=== PATIENT | male | born 1940 | race Two or more races ===

== ENCOUNTER 2024-08-02 09:44 | Outpatient (RCR) | payer OTHER, SELFPAY ==
--- NOTE | 2024-08-02 11:47 | CTCCONSULT_ITS ---
[facility] [address], [place] [address] Consultation Note Date: 08/02/2024 MR#: [id number] Name: DANIEL GARCIA : 1940 Dx: C61 Malignant neoplasm of prostate Attending physician. Laquita Curiel MD Referring physician. Bobby Dumont MD Reason for consultation. Recurrent prostate CA History of Present Illness: Patient is a 84-year-old gentleman who underwent prostatectomy for locali zed prostate CA 2003. Recently noted to have PSA had risen to 22 04/25/[address] showing 4 mm left external iliac lymph node mass and bone scan positive for possible thoracic left mandible rig ht maxilla and right hip involvement. Patient is having minimal discomfort but because of evidence o f recurrence patient is started Lupron injections thus far gone to monthly shots according to family. Patient now referred for radiation oncology consultation. Past Medical History: High blood pressure, prostatism. Meds. Gabapentin lisinopril oxybutynin atorvastatin doxazosin Allergies none to meds Family history. Denies history of prostate cancer Social History: [place]-speaking retired from [employer] Review of Systems: Has had difficulty hearing to years muscle pain nocturia recent back pain Physical Exam: General: Well-appearing gentleman in no acute distress HEENT: Atraumatic normocephalic extraocular is intact no oral lesion no cervical or supraclavicular a denopathy CV: Chest clear to all station heart regular rate and rhythm ABD: Soft no organomegaly or tenderness EXT: no cyanosis clubbing or edema Assessment:1. History of localized prostate CA radical prostatectomy 2003. 2. Suspected recurrence based on elevated PSA of [address] and bone scan. 3. Currently receiving monthly Lupron injections . 4. Shall get PET scan to better stage patient. Possible treatment of bony site and if no obvious e vidence of distant mets, treatment of pelvis area will be discussed with patient. 5. Thank you much for allowing me to evaluate this patient. Cc: . Bobby Curiel MD Electronically signed by: Isaias Yeung MD, DABR 08/02/2024 11:45 AM
== END 2024-08-19 23:59 | disposition home or self-care (01) ==
LOC: SCTC 09:44
PROVIDERS: PCP Internal Medicine; Referring Provider Surgery; Visit Provider Radiology Therapeutic Radiology
DX: C61 Malignant neoplasm of prostate (principal); Z79.818 Long term (current) use of other agents affecting estrogen receptors and estrogen levels; Z90.79 Acquired absence of other genital organ(s)
CPT/HCPCS: 99213; G0463

== ENCOUNTER → 2024-08-18 | Outpatient (CLI) | payer OTHER, SELFPAY ==
--- NOTE | 2024-08-18 14:00 | XR_ITS ---
EXAMINATION: PET/CT FUSION SKULL TO THIGH EXAM DATE AND TIME: August 18, 2024 1442 hours INDICATIONS: Diagnosis prostate cancer prior to treatment staging CTDI:vol (mGy) 8.72 DLP: (mGycm) 796 PROCEDURE: 15.86 mCi FDG was administered intravenously To allow for distribution and uptake of radiotracer, the patient was allowed to rest quietly in a shielded room. Imaging was performed on an integrated 16-slice PET/CT scanner, with scanning from the skull base to the mid thigh. Serum blood glucose at the time of the injection was measured 108 mg/dL. CT scanning was performed without oral or intravenous contrast material. FINDINGS: Head and Neck: There is no jadon hypermetabolism in the neck. The visualized portions of the brain are normal in appearance on CT. Chest: There is no jadon hypermetabolism in the chest. There are no pulmonary nodules. Abdomen and Pelvis: There is no jadon hypermetabolism in retroperitoneal or pelvic chains. The spleen is normal in size and FDG avidity. The 4 cm left external iliac lymph node mass on the CT pelvis June 03 2024 currently measures 27 mm is not hypermetabolic Musculoskeletal: Marrow uptake is within normal range. However, please see the nuclear medicine bone scan June 10, 2024 IMPRESSION: The 4 cm left external iliac lymph node mass on the CT pelvis June 03, 2024 currently measures 27 mm and is not hypermetabolic
== END | disposition home or self-care (01) ==
PROVIDERS: PCP Internal Medicine; Referring Provider Radiology Therapeutic Radiology; Visit Provider Radiology Therapeutic Radiology
DX: R19.09 Other intra-abdominal and pelvic swelling, mass and lump (principal); C61 Malignant neoplasm of prostate
CPT/HCPCS: 78815; A9552

== ENCOUNTER 2024-09-15 09:51 | Outpatient (RCR) | payer OTHER, SELFPAY ==
--- NOTE | 2024-08-31 15:21 | CTCFLWUP_ITS ---
[facility] [address] [place], [place] [address] FOLLOW-UP NOTE Date: 08/31/2024 MR#: [id number] Name: DANIEL GARCIA : 1940 Dx: C61 Malignant neoplasm of prostate Patient is here for follow-up to check on the PET scan results. There is no clear evidence of mets with the left external iliac node not being hypermetabolic. Bony lesion appear more subtle and less significant than bone scan. Will move forward with treating the prostate region only considering he is getting Lupron shots and his age as well. Side effects discussed. Electronically signed by: Isaias Yeung M.D. 08/31/2024 3:19 PM
--- NOTE | 2024-08-31 15:22 | CTCTXPLN_ITS ---
[facility] [address] [place], [place] [address] Physician Clinical Treatment Planning Note Date of Service: 08/31/2024 Name: DANIEL GARCIA D.O.B.: 1940 The patient has agreed to proceed with Radiation therapy. Tests and supporting medical records were interpreted to assist in defining the tumor location and extent of disease. Further imaging will be necessary to contour and delineate the volume to which the XRT will be provided. A. Treatment Intent: Curative B. Modality: 10 MV C. Requested Technique: VMAT D. Treatment Site: Pelvis E. Critical structures to be contoured on plan: F. In order to accomplish this plan, I am ordering/Prescribing the followin. Simulations (s) will be performed to accomplish a reproducible treatment position, to determine optimal treatment portals/beam arrangements, to design beam modifying devices and verify treatment portals on patient prior to the commencement of Radiation Therapy. Pelvis 2. Devices; for immobilization and beam shaping: Vac-Todd 3. CT Guidance for placement of XRT torres Scan area: 4. Portal images Frequency: 5. Invivo transit dose measurement once per week on all VMAT patients. 6. Special Physics Consult Requested for: 7. Other requests: G. Dose Objectives: Curative Electronically signed by: Isaias Yeung M.D. 08/31/2024 3:19 PM
--- NOTE | 2024-08-31 15:23 | CTCTXPLNST_ITS ---
Radiation Oncology Treatment Planning Sheet Name: DANIEL GARCIA MR#: [id number] : 1940 Dx: C61 Malignant neoplasm of prostate Date of Service: 08/31/2024 Account #: ?? Pt Treatment Intent: curative palliative other: Stage: Procedure CPT # Ordered Spec. Procedure 87601 Yuan Complex (set-up) 64569 pelvis 1 Yuan Simple 56636 IMRT Plan 35891 1 MLC Devices VMAT 91574 3 Yuan 3 D 56486 TRTMT dev Complex 30409 Vac-Todd 1 TRTMT dev simple 28771 Basic [place] 43097 6 Special Dosimetry 42679 Spec Physics 34956 Port Films 12995 SRS Cranial/1FX 11308 SBR 5 FX or Less /ex: 5 = 5 fx 55253 IMRT Simple 49856 6840 38 IMRT Complex 70353 IGRT 27272 33 Rad del com 6-10 17935 Rad del com 11- 30885 Cont Med Physics 62460 7 Treatment Planning 14845 1 Rad del com 20 mev 70861 Rad del inter 6-10 83972 Rad del inter 11 67899 Rad del simple 6-10 64286 Rad del simple 11-19 88485 Special Port Plan 21265 TRTMT dev inter 71190 Isodose Complex 90566 Isodose simple 92796 Resp Motion Mgmt Simulation 70605 Placement of Fiducial Markers 31512 Electronically Signed By: Isaias Yeung MD, DABR 08/31/2024 3:21 PM
== END 2024-09-16 23:59 | disposition home or self-care (01) ==
LOC: SCTC 09:51
PROVIDERS: PCP Internal Medicine; Referring Provider Internal Medicine; Visit Provider Radiology Therapeutic Radiology
DX: C61 Malignant neoplasm of prostate (principal)
CPT/HCPCS: 77014; 77290; 77334

== ENCOUNTER 2024-10-17 09:25 | Outpatient (RCR) | payer OTHER, SELFPAY | END 2024-10-17 23:59 | disposition home or self-care (01) | LOC: SCTC 09:25 | PROVIDERS: PCP Internal Medicine; Referring Provider Internal Medicine; Visit Provider Radiology Therapeutic Radiology | DX: Z51.0 Encounter for antineoplastic radiation therapy (principal); C61 Malignant neoplasm of prostate | CPT/HCPCS: 77300; 77301; 77336; 77338; 77385 ==

== ENCOUNTER → 2024-10-24 | Outpatient (CLI) | payer OTHER, SELFPAY ==
[2024-10-24 08:05] LABS: Collection Type, Urine Clean Catch
[2024-10-24 08:37] LABS: Basophils % (Auto) 0 % (0-2.5); Eosinophils # (Auto) 0.1 Thou/mm3 (0.0-0.5); Eosinophils % (Auto) 2 % (0-10); Hematocrit 37.2 % (41.0-53.0); Hemoglobin 12.8 g/dL (13.5-16.0); Immature Granulocytes % (Auto) 1 % (0-0); Immature Granulocytes Auto 0.03 Thou/mm3 (0.00-0.00); Lymphocytes # (Auto) 1.2 Thou/mm3 (1.0-4.8); Lymphocytes % (Auto) 19 % (10-50); Mean Corpuscular HGB Conc 34.4 g/dl (31.0-37.0); Mean Corpuscular Hemoglobin 29.7 pg (25.0-35.0); Mean Corpuscular Volume 86 fL (80-100); Monocytes # (Auto) 0.6 Thou/mm3 (0.0-0.8); Monocytes % (Auto) 9 % (0-12); Neutrophils # (Auto) 4.5 Thou/mm3 (1.8-7.7); Neutrophils % (Auto) 70 % (37-80); Nucleated Red Blood Cell % 0 /100 WBC (0); Platelet Count 180 Thou/mm3 (140-440); RDW Standard Deviation 40.8 fL (35.1-43.9); Red Blood Count 4.31 Miln/mm3 (4.50-5.90); White Blood Count 6.4 Thou/mm3 (3.8-10.6)
[2024-10-24 08:52] LABS: Bilirubin,Urine Negative (Negative); Blood,Urine Negative (Negative); Clarity,Urine Clear (Clear/Hazy); Color,Urine Lt-Yellow (Lt Yel-Yel); Glucose, Urine Negative (Negative); Ketones,Urine Negative (Negative); Leukocyte Esterase,Urine Negative (Negative); Nitrite,Urine Negative (Negative); PH,Urine 7.5 (5.0-7.0); Protein,Urine Trace (Neg - Trace); RBC,Urine 4 /hpf (0-3); Squamous Epithelial Cell,Urine < 1 /hpf (0-5); Urobilinogen,Urine Negative mg/dL (0.0-1.0); WBC,Urine 1 /hpf (0-5)
[2024-10-24 08:59] LABS: Alanine Aminotransferase 15 U/L (10-49); Albumin, Serum 3.7 gm/dL (3.4-4.8); Albumin/Globulin Ratio 1.4 (1.2-2.2); Alkaline Phosphatase 121 U/L (46-116); Anion Gap 8 (7-16); Aspartate Amino Transferase 24 U/L (0-34); BUN/Creatinine Ratio 20 Ratio (12-20); Blood Urea Nitrogen 16 mg/dL (9-23); Calcium (Corrected) 9.2 mg/dL (8.5-10.1); Carbon Dioxide 29.3 mMol/L (20.0-31.0); Cardiac Risk Estimate 3.7 RATIO (4.0-6.7); Chloride 102 mMol/L (98-107); Cholesterol 112 mg/dL (132-200); Creatinine (Component) 0.8 mg/dL (0.6-1.3); Globulin 2.7 gm/dL (2.3-3.5); Glucose 112 mg/dL (74-106); HDL Cholesterol 30 mg/dL (40-60); LDL Cholesterol,Calculated 64 mg/dL (0-130); Osmolality,Calculated 279 (275-295); Potassium 3.8 mMol/L (3.4-5.1); Sodium 139 mMol/L (136-145); Total Protein 6.4 gm/dL (5.7-8.2); Triglycerides 89 mg/dL (30-150); eGFR > 60 See Note
== END | disposition home or self-care (01) ==
LOC: COPL 07:13
PROVIDERS: PCP Internal Medicine; Referring Provider Internal Medicine; Visit Provider Internal Medicine
DX: I10 Essential (primary) hypertension (principal); E78.5 Hyperlipidemia, unspecified
CPT/HCPCS: 36415; 80053; 80061; 81001; 85025

== ENCOUNTER 2024-11-16 09:10 | Outpatient (RCR) | payer OTHER, SELFPAY | END 2024-11-16 23:59 | disposition home or self-care (01) | LOC: SCTC 09:10 | PROVIDERS: PCP Internal Medicine; Referring Provider Internal Medicine; Visit Provider Radiology Therapeutic Radiology | DX: Z51.0 Encounter for antineoplastic radiation therapy (principal); C61 Malignant neoplasm of prostate | CPT/HCPCS: 77336; 77385 ==

== ENCOUNTER 2024-11-30 10:36 | Outpatient (RCR) | payer OTHER, SELFPAY ==
--- NOTE | 2024-11-30 14:06 | CTCTSUMM_ITS ---
[facility] [address] [place], [place] [address] Treatment Summary Date: 11/30/2024 MR#: [id number] Name: DANIEL GARCIA : 1940 Dx: C61 Referring Physician: Bobby Dumont MD (A) Diagnosis: [ICD10] C61 Malignant neoplasm of prostate (B) Aim of Treatment: ?? (C) Concomitant Chemotherapy: No (D) Radiation Dates: 09/26/2024 through 11/16/2024 Treatment Prescription prostate VMAT 10MV 6,840 cGy 38 180 cGy Approved (E) All torres were treated using customized MLC Blocks (F) Finding at Discharge: Patient seen for first follow-up on 11/30/2024. Patient was doing well except for some fatigue. PSA today was less than 0.1 (G) Discharge Instructions and F/U Appt was given: The patient was also advised to continue follow-up with Dr. uDmont and primary care physician: cc: Bobby Dumont MD Electronically signed by: Isaias Yeung MD, DABR 11/30/2024 2:04 PM
== END 2024-12-17 23:59 | disposition home or self-care (01) ==
LOC: SCTC 10:36
PROVIDERS: PCP Internal Medicine; Referring Provider Internal Medicine; Visit Provider Radiology Therapeutic Radiology
DX: C61 Malignant neoplasm of prostate (principal); Z92.3 Personal history of irradiation; R53.83 Other fatigue
CPT/HCPCS: 99212; G0463

== ENCOUNTER → 2024-11-30 | Outpatient (CLI) | payer OTHER, SELFPAY ==
[2024-11-30 13:49] LABS: Prostate Specific Antigen < 0.10 ng/mL (0-4.00)
== END | disposition home or self-care (01) ==
PROVIDERS: PCP Internal Medicine; Referring Provider Surgery; Visit Provider Radiology Therapeutic Radiology
DX: C61 Malignant neoplasm of prostate (principal)
CPT/HCPCS: 36415; 84153

== ENCOUNTER 2025-01-24 09:12 | Inpatient (IN) | payer OTHER, MEDICARE, SELFPAY ==
[2025-01-24] VITALS (9 sets, daily range): BP systolic 61–107; BP diastolic 41–59; PULSE 57–82; RESP 12–92; TEMP 36–37.3; O2SAT 94–98; BMI 32.0
--- NOTE | 2025-01-24 09:28 | EKG_ITS ---
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
--- NOTE | 2025-01-24 09:28 | PD.EDWEAK ---
ED Weakness RME/HPI General Chief complaint: Skin/Abscess/Foreign Body Stated complaint: WEAKNESS WITH RASH YESTERDAY Time Seen by Provider: 01/24/25 09:28 Arrival date/time: 01/24/25 09:12 Limitations: no limitations RME / HPI RME / HPI Narrative: 84 year old male with history of prostate cancer, s/p prostatectomy, undergoing radiation therapy, hypertension presents to the ED BIBA from home for evaluation of global weakness and rash today. Per medics, family on scene reported symptoms began yesterday and was given Benadryl without improvement. Per medics, patient also noted to be hypotensive SBP in the 60's. Related Data Home Medications ?Medication ?Instructions ?Recorded ?Confirmed doxazosin 2 mg tablet 2 mg PO QDAY 04/14/18 02/21/22 gabapentin 300 mg capsule 300 mg PO BID 04/14/18 02/21/22 atorvastatin 10 mg tablet 10 mg PO QDAY 02/21/22 02/21/22 lisinopril 20 1 tab PO DAILY 02/21/22 02/21/22 mg-hydrochlorothiazide 12.5 mg tablet ofloxacin 0.3 % ear drops 10 drp otic (ear) BID 02/21/22 02/21/22 Allergies Allergy/AdvReac Type Severity Reaction Status Date / Time No Known Allergies Allergy Verified 01/24/25 09:39 Review of Systems Review of Systems Systems Reviewed: All systems reviewed, normal except as documented Past Medical History Past Medical History CARDIAC: Positive Cardiac Disorders, Hypercholesterolemia (TAKES MED) and Hypertension (TAKES MED) GASTROINTESTINAL: Positive Gastrointestinal Disorders, Gastrointestinal Bleed (PAST) and Gastroesophageal Reflux Disease (PAST) GENITOURINARY: Positive Genitourinary Disorders, Prostate Cancer (HAD SURG) and Benign Prostatic Hyperplasia MUSCULOSKELETAL: Positive Musculoskeletal Disorders and Arthritis ENT: Positive Cataracts (RIGHT) HEMATOLOGIC: Positive Anemia OTHER HISTORY: Positive Cancer and Prostate Cancer (HAD SURG) Family History FAMILY HISTORY: Positive Family Cardiac Disorders (FATHER (ND)), Family Cancer (SISTER (PANCREAS)) and Family Surgery (SISTER) Surgical History SURGICAL: Positive Abdominal Surgery, Transurethral Resection and Joint Replacement (CARLEY KNEE) Social History SMOKING STATUS: Never smoker ED Exam General Limitations: Present no limitations General appearance: Present alert, in no apparent distress and obese Head Head exam: Present atraumatic Eye Eye exam: Present normal appearance, PERRL and EOMI ENT ENT exam: Present normal exam, normal oropharynx and mucous membranes moist Neck Neck exam: Present normal inspection, full ROM, trachea midline and other (no JVD ) Chest Chest inspection: Present normal inspection and symmetric chest wall rise Respiratory Respiratory exam: Present normal lung sounds bilaterally Cardiovascular Cardiovascular exam: Present regular rate, normal rhythm and normal heart sounds Abdominal Exam Abdominal exam: Present soft and normal bowel sounds; Absent tenderness, guarding, rebound or mass Extremities Exam Extremities exam: Present normal inspection and full ROM Back Exam Back exam: Present normal inspection and full ROM Neurological Exam Neurological exam: Present alert, oriented X3 and CN II-XII intact Psychiatric Psychiatric exam: Present normal affect and normal mood Skin Skin exam: Present warm, dry, intact, normal color and other (generalized maculopapular rash to the trunk and extremities ) Course Quality Measures none Orders Category Date Time Status Admit to Inpatient Status Routine Admission 01/24/25 14:41 Active Patient Condition Routine Admission 01/24/25 14:41 Ordered COVID-19 Screening Questionnaire NOW Care 01/24/25 14:12 Active Tree Planter STAT Care 01/24/25 09:28 Active Continuous Pulse Oximetry STAT Care 01/24/25 09:28 Completed Decision to Admit X1 Care 01/24/25 14:12 Active EKG (ED ONLY) *Do not use* NOW Care 01/24/25 09:28 Completed Insert IV NOW Care 01/24/25 09:28 Active Miscellaneous Nursing Order NOW Care 01/24/25 14:46 Active NPO STAT Care 01/24/25 09:28 Active Notify provider NEEDED Care 01/24/25 14:41 Active Sequential Compression Device QSHIFT Care 01/24/25 14:46 Active Strict Intake and Output Routine Care 01/24/25 09:28 Ordered Urinary Catheter QS Care 01/24/25 09:28 Completed Diet Renal Diet 01/24/25 Dinner Active EKG (ED Only) Stat Exams 01/24/25 09:28 Draft XR chest 1V SEPSIS PROTOCOL Stat Exams 01/24/25 09:34 Completed Arterial Blood Gas Stat Lab 01/24/25 10:12 Completed B-Type Natriuretic Peptide Stat Lab 01/24/25 09:40 Completed Blood Culture (Lab) Stat Lab 01/24/25 09:40 Received CBC AM DRAW Lab 01/25/25 05:00 Ordered CBC AM DRAW Lab 01/26/25 05:00 Ordered CBC AM DRAW Lab 01/27/25 05:00 Ordered CBC Stat Lab 01/24/25 09:40 Completed Comprehensive Metabolic Panel AM DRAW Lab 01/25/25 05:00 Ordered Comprehensive Metabolic Panel AM DRAW Lab 01/26/25 05:00 Ordered Comprehensive Metabolic Panel AM DRAW Lab 01/27/25 05:00 Ordered Comprehensive Metabolic Panel Stat Lab 01/24/25 09:40 Completed Lactate (Lactic Acid) Stat Lab 01/24/25 09:40 Completed Lactic Acid, 3 HR Stat Lab 01/24/25 13:19 Completed Lipase Stat Lab 01/24/25 09:40 Completed Magnesium AM DRAW Lab 01/25/25 05:00 Ordered Magnesium Stat Lab 01/24/25 09:40 Completed Partial Thromboplastin Time AM DRAW Lab 01/25/25 05:00 Ordered Partial Thromboplastin Time Stat Lab 01/24/25 09:40 Completed Phosphorous AM DRAW Lab 01/25/25 05:00 Ordered Phosphorous Stat Lab 01/24/25 09:40 Completed Procalcitonin Stat Lab 01/24/25 09:40 Completed Prothrombin Time with INR AM DRAW Lab 01/25/25 05:00 Ordered Prothrombin Time with INR Stat Lab 01/24/25 09:40 Completed Thyroid Stimulating Hormone AM DRAW Lab 01/25/25 05:00 Ordered Troponin I Stat Lab 01/24/25 09:40 Completed Urinalysis Stat Lab 01/24/25 09:50 Completed Urine Culture Stat Lab 01/24/25 09:50 Received Acetaminophen Tab [Tylenol Tab] Med 01/24/25 14:43 Active 650 mg PO Q6H PRN Azithromycin Inj [Zithromax Inj] 500 mg Med 01/24/25 14:48 Active Sodium Chloride 0.9% 250 ml [Ns] 250 ml IV QDAY MethylPREDNISolone.* [SoluMEDROL Inj] Med 01/24/25 09:40 Discontinued 125 mg IVP X1 ONE Ondansetron Inj [Zofran Inj] Med 01/24/25 14:43 Active 4 mg IVP Q6H PRN Piper/Tazo 3.375 gm Premix [Zosyn] Med 01/24/25 09:28 Discontinued 3.375 gm in 50 ml IV X1 Ringers Lactated 1000 ml [Lactated Ringers] 1,000 ml Med 01/24/25 14:45 Active IV 90 mls/hr Ringers Lactated 1000 ml [Lactated Ringers] 1,000 ml Med 01/24/25 09:39 Discontinued IV 999 mls/hr Ringers Lactated 1000 ml [Lactated Ringers] 1,000 ml Med 01/24/25 09:39 Discontinued IV 999 mls/hr Ringers Lactated 1000 ml [Lactated Ringers] 1,000 ml Med 01/24/25 09:40 Discontinued IV 999 mls/hr cefTRIAXone/D5w 1gm IV premix [Rocephin/D5w 1gm IV Med 01/24/25 14:48 Active premix] 1 gm in 50 ml IV QDAY Code Status Routine Oth 01/24/25 14:41 Ordered Oxygen Delivery NOW RT 01/24/25 09:28 Active Vital Signs Vital signs: Vital Signs Temperature 99.2 F 01/24/25 09:26 Pulse Rate 77 01/24/25 09:26 Respiratory Rate 20 01/24/25 09:26 Blood Pressure 61/41 L 01/24/25 09:26 Pulse Oximetry (%) 95 01/24/25 09:26 Weakness MDM Narrative MDM Narrative:: INyasia am scribing for and in the presence of Dr. Shultz. 1405: is at bedside and provides additional history. states they went to the [facility] on Thursday. States the patient only walked a few feet to his seat and was not exposed to plants. States the patient has felt fatigued since Thursday and noted the rash beginning yesterday. They consulted with PCP yesterday who prescribed Prednisone which has not provided any relief. Patient data External records reviewed:: [facility] previous records (I reviewed oncology follow up note on 08/31/2024 ) and EMS form Clinical information provided by:: EMS Social determinants that could affect healthcare access:: none Patient has the following chronic illnesses:: prostate cancer, s/p prostatectomy, undergoing radiation therapy, hypertension How is presenting disease/condition affected by chronic disease/condition?: exacerbated by Evaluation data The following diagnostics were reviewed and interpreted by me:: lab results, radiology exam(s) and EKG tracing(s) (01/24/2025 @ 9:51 AM. NSR with occasional PVC, no STEMI, rate 68. ) Lab and/or radiology exams considered but not ordered:: None Interpretation Summary: Ordering Physician: Sher Shultz MD Date of Service: 01/24/25 Procedure(s): XR chest 1V SEPSIS PROTOCOL Accession Number(s): [id number] cc: Sher Shultz MD; Nelson Dang MD; Laquita Curiel MD~ Examination: AP chest single view Technique one AP portable upright chest single view Date and time: January 24, 2025 1009 hours Comparison July 11, 2010 INDICATIONS: Sepsis alert today. FINDINGS: Significant pneumonia left base. Normal heart size. Right lung clear. IMPRESSION: Significant pneumonia left base Dictated By: Nelson Dang MD Signed By: <Electronically signed by Nelson Dang MD in OV>01/24/25 1103 Medications / Prescriptions Medications or Prescriptions considered but not ordered:: None Medication administrations:: Medication Administration History Acetaminophen (Acetaminophen 325 Mg Tablet) 650 mg PO Q6H PRN PRN Reason: pain 1-3 &/or temp>100.1 Stop: 02/23/25 14:42 Lactated Ringer's (Lactated Ringers) 1,000 mls @ 90 mls/hr IV .Q11H7M JOEL Stop: 02/23/25 14:44 Ceftriaxone Sodium/Dextrose (Rocephin/D5w 1gm Iv Premix) 1 gm in 50 mls @ 100 mls/hr IV QDAY JOEL Stop: 01/31/25 14:47 Azithromycin 500 mg/ Sodium (Chloride) 250 mls @ 250 mls/hr IV QDAY JOEL Stop: 01/31/25 14:47 Ondansetron HCl (Ondansetron Inj 2 Mg/Ml Inj 2 Ml) 4 mg IVP Q6H PRN; Protocol PRN Reason: NAUSEA OR VOMITING Stop: 02/23/25 14:42 Discontinued Medications Piperacillin/Tazobactam/Dextrose (Zosyn) 3.375 gm in 50 mls @ 100 mls/hr IV X1 ONE Stop: 01/24/25 09:57 Last Infusion: 01/24/25 11:30 Dose: Infused Documented By: Admin: 01/24/25 10:42 Dose: 100 mls/hr Documented By: TED Lactated Ringer's (Lactated Ringers) 1,000 mls @ 999 mls/hr IV .Q1H1M ONE Stop: 01/24/25 10:39 Last Infusion: 01/24/25 10:51 Dose: Infused Documented By: Admin: 01/24/25 09:50 Dose: 999 mls/hr Documented By: TED Lactated Ringer's (Lactated Ringers) 1,000 mls @ 999 mls/hr IV .Q1H1M ONE Stop: 01/24/25 10:39 Last Infusion: 01/24/25 11:05 Dose: Infused Documented By: Admin: 01/24/25 09:55 Dose: 999 mls/hr Documented By: TED Lactated Ringer's (Lactated Ringers) 1,000 mls @ 999 mls/hr IV .Q1H1M ONE Stop: 01/24/25 10:40 Last Infusion: 01/24/25 12:05 Dose: Infused Documented By: Admin: 01/24/25 10:50 Dose: 999 mls/hr Documented By: TED Methylprednisolone Sodium Succinate (Methylprednisolone Sod Succ 62.5 Mg/Ml 2ml Vial) 125 mg IVP X1 ONE Stop: 01/24/25 09:41 Last Admin: 01/24/25 10:42 Dose: 125 mg Documented By: TED See above Consultations Consultation(s) initiated? (list below): Yes Consultation #1 (Physician, Specialty, Details): I spoke with patients PCP Dr. Curiel, Discussed patients PMHx, HPI, ED course, exam findings, labs, and radiology results. She agrees to accept the patient for admission. Diagnosis Weakness Differential Diagnosis: acute myocardial infarction, hypoglycemia, rhabdomyolysis, sepsis and dehydration Most likely diagnosis given after review of the tests above:: Left pneumonia sepsis hypotension GABBY elevated troponin leukocytosis UTI Admission Indicated Admission indicated?: indicated Admission Request Was there a request for admission?: Yes Admission Attestation Admission request attestation: Discussed case with [] from Hospitalist service regarding admission. Discussed patients ED course, exam findings, labs, and radiology results. The Hospitalist [agrees,declines] to accept the patient for admission. Disposition Plan Disposition Plan: Admit Critical Care Time Critical Care Time Critical Care Time: Yes Total Critical Care Time (min.): 60 Attestation: The high probability of sudden, clinically significant deterioration in the patient's condition required the highest level of my preparedness to intervene urgently. The services I provided to this patient were to treat and/or prevent clinically significant deterioration. Services included the following: chart data review, reviewing nursing notes and/or old charts, documentation time, nursing education consultant collaboration regarding findings and treatment options, medication orders and management, direct patient care, vital sign assessments and ordering, interpreting and reviewing diagnostic studies and lab tests. Aggregate critical care time includes only time during which I was engaged in work directly related to the patient's care, as described above, whether at bedside or elsewhere in the Emergency Department. It did not include time spent performing other reported procedures or the services of residents, students, nurses or physician assistants. Discharge Plan Plan Patient Disposition: Admit Acute Care w/in Hospital Prescriptions/Referrals Prescriptions/Med Rec: No Action gabapentin 300 mg Capsule 300 mg PO BID doxazosin 2 mg Tablet 2 mg PO QDAY atorvastatin 10 mg Tablet 10 mg PO QDAY lisinopril-hydrochlorothiazide 20-12.5 mg tablet 1 tab PO DAILY Patient Comments: TAKE 1 TABLET BY MOUTH ONCE DAILY ofloxacin 0.3 % Drops 10 drp OTIC (EAR) BID Problem List Clinical Impression: Left lower lobe pneumonia, Sepsis, Hypotension, GABBY (acute kidney injury), Elevated troponin, Leukocytosis, UTI (urinary tract infection) Patient/Caregiver Discharge Instructions Print Language: Zambian Stand Alone Forms: Jennifer Award Info., Patient Portal Info Letter
--- NOTE | 2025-01-24 09:34 | XR_ITS ---
Examination: AP chest single view Technique one AP portable upright chest single view Date and time: January 24, 2025 1009 hours Comparison July 11, 2010 INDICATIONS: Sepsis alert today. FINDINGS: Significant pneumonia left base. Normal heart size. Right lung clear. IMPRESSION: Significant pneumonia left base
[2025-01-24] MEDS: RINGERS LACTATED 1000 ML 1,000 ML 999 ML IV ×3 (09:50→10:50)
[2025-01-24 10:04] LABS: Collection Type, Urine Clean Catch
[2025-01-24 10:07] LABS: Lactate (Lactic Acid) 3.7 mMol/L (0.4-2.0)
[2025-01-24 10:15] LABS: Base Excess 1 (-3-3); HCO3 24 mEq/L (20-26); Inspired O2, VO2 Liters 1 L/min; Inspired Oxygen, FIO2 21 %; O2 Saturation 100 % (91-98); PCO2 35 mmHg (32.0-48.0); PO2 193 mmHg (83-108); pH, Arterial 7.45 (7.35-7.45)
[2025-01-24 10:16] LABS: Basophils # (Auto) 0.1 Thou/mm3 (0.0-0.2); Basophils % (Auto) 0 % (0-2.5); Eosinophils # (Auto) 0.3 Thou/mm3 (0.0-0.5); Eosinophils % (Auto) 1 % (0-10); Hematocrit 38.0 % (41.0-53.0); Hemoglobin 13.4 g/dL (13.5-16.0); Immature Granulocytes Auto 1.06 Thou/mm3 (0.00-0.00); Lymphocytes # (Auto) 0.5 Thou/mm3 (1.0-4.8); Lymphocytes % (Auto) 2 % (10-50); Mean Corpuscular HGB Conc 35.3 g/dl (31.0-37.0); Mean Corpuscular Hemoglobin 30.0 pg (25.0-35.0); Mean Corpuscular Volume 85 fL (80-100); Monocytes # (Auto) 0.8 Thou/mm3 (0.0-0.8); Monocytes % (Auto) 3 % (0-12); Neutrophils # (Auto) 22.4 Thou/mm3 (1.8-7.7); Neutrophils % (Auto) 90 % (37-80); Nucleated Red Blood Cell # 0.00 Thou/mm3 (0.00-0.00); Nucleated Red Blood Cell % 0 /100 WBC (0); Platelet Count 159 Thou/mm3 (140-440); RDW Standard Deviation 42.3 fL (35.1-43.9); Red Blood Count 4.47 Miln/mm3 (4.50-5.90); White Blood Count 25.0 Thou/mm3 (3.8-10.6)
[2025-01-24 10:21] LABS: Allen Test Not Performed; Puncture Site Left Radial
--- NOTE | 2025-01-24 10:21 | PC.NURSE ---
BIBA FROM HOME FOR WEAKNESS AND BODY RASH X YESTERDAY. HYPOTENSIVE UPON ER ARRIVAL WITH SLIGHT FEVER AND GCS 15. HX HIGH CHOLESTEROL, HTN, BILAT KNEE SURGERY BACK SURGERY, RIGHT EAR SURGERY, AND AMBULATES WITH CANE / WALKER. ALSO STATES PATIENT HAS HX PROSTATE CANCER X 20YRS WITH CHEMOTHERAPY. MAY 2024 PROSTATE CNX NUMBERS INCREASED AND RECEIVED RADIATION THERAPY JUL-SEP. NO PREVIOUS HX OF SKIN RASH
[2025-01-24 10:29] LABS: B-Type Natriuretic Peptide 32 pg/mL (0-100); INR 1.3 (0.9-1.3); Partial Thromboplastin Time 37.3 Seconds (22.0-36.0); Prothrombin Time 13.5 Seconds (9.0-12.2)
[2025-01-24] MEDS: PIPER/TAZO 3.375 GM PREMIX 3.375 GM/50 ML BAG IV (10:42)
[2025-01-24] MEDS: MethylPREDNISolone SOD SUCC 62.5 MG/ML 2ML VIAL 125 MG IVP (10:42)
[2025-01-24 11:02] LABS: Alanine Aminotransferase 19 U/L (10-49); Albumin, Serum 3.6 gm/dL (3.4-4.8); Albumin/Globulin Ratio 1.4 (1.2-2.2); Alkaline Phosphatase 94 U/L (46-116); Anion Gap 11 (7-16); Aspartate Amino Transferase 43 U/L (0-34); BUN/Creatinine Ratio 10 Ratio (12-20); Bilirubin,Total 1.0 mg/dL (0.3-1.2); Blood Urea Nitrogen 37 mg/dL (9-23); Calcium 9.0 mg/dL (8.3-10.6); Calcium (Corrected) 9.3 mg/dL (8.5-10.1); Carbon Dioxide 24.6 mMol/L (20.0-31.0); Chloride 100 mMol/L (98-107); Creatinine (Component) 3.6 mg/dL (0.6-1.3); Estimated Creatinine Clearance 17.2 mL/min (>60); Globulin 2.6 gm/dL (2.3-3.5); Glucose 218 mg/dL (74-106); Lipase 23 U/L (12-53); Magnesium 1.9 mg/dL (1.6-2.6); Osmolality,Calculated 287 (275-295); Phosphorous 2.6 mg/dL (2.4-5.1); Potassium 4.3 mMol/L (3.4-5.1); Procalcitonin 4.21 ng/ml (0.0-0.49); Sodium 136 mMol/L (136-145); Total Protein 6.2 gm/dL (5.7-8.2); eGFR 16 See Note
[2025-01-24 11:27] LABS: Troponin I 0.119 ng/mL (0.0-0.045)
[2025-01-24 12:03] LABS: Bilirubin,Urine 1+ (Negative); Blood,Urine 2+ (Negative); Clarity,Urine Clear (Clear/Hazy); Color,Urine Drk Orange (Lt Yel-Yel); Glucose, Urine Trace (Negative); Ketones,Urine 1+ (Negative); Leukocyte Esterase,Urine Trace (Negative); Nitrite,Urine Positive (Negative); PH,Urine 5.0 (5.0-7.0); Protein,Urine 2+ (Neg - Trace); Specific Gravity,Urine >= 1.030 (1.001-1.035); Urobilinogen,Urine 1.0 mg/dL (0.0-1.0)
[2025-01-24 12:18] LABS: Bacteria,Urine 2+; RBC,Urine 44 /hpf (0-3); Squamous Epithelial Cell,Urine 28 /hpf (0-5); WBC,Urine 38 /hpf (0-5)
[2025-01-24 13:04] LABS: Reflex Lactate? Y
[2025-01-24 13:37] LABS: Lactic Acid, 3 HR 2.1 mMol/L (0.4-2.0)
--- NOTE | 2025-01-24 15:06 | PD.RESHP ---
Documentation for date of: 01/24/25 HPI History of Present Illness Chief complaint: septic shock, pneumonia History of present illness: Informant , granddaughter Iftikhar Haines is a 84M pmhx significant for prostate cancer status post prostatectomy years ago with recurrence in in May 2024 undergoing radiation therapy, on Lupron and Casodex , hypertension who presents with several days of weakness and rash all over the body for 1-2 days at bedside and majority of history collected from her. reports that patient began feeling weak and had difficulty walking short distances without feeling fatigued beginning Thursday with gradual worsening, as well as a spreading body rash that started yesterday. also reports that patient has had less urine output the past 2 days and has been slowly getting more confused, sometimes speaking nonsense . Patient has multiple falls yesterday and today. Denies any recent change in medication, travel or diet changes. Denies fever, chest pain, or shortness of breath. PMHx: Prostate cancer status post prostatectomy currently undergoing radiation therapy, hypertension, HLD, Surgical Hx: Bilateral total knee replacements, remote back surgery FHx: Mother diabetes. Father from [place]. No reportable hx of kidney disease Social Hx: Denies tobacco alcohol and illicit recreational drug use. Allergies: NKA Medications: Gabapentin 300 mg BID, lisinopril HCTZ 20/12 mg QD, Oxibutin 5 mg QD, atorvastatin 10 QD, doxazosin 2 mg QD, Casodex-bicalutamide In ED, BP 61/41 HR 77 RR 20 and temp 99.2, WBC 25, Hgb 13.4, PT 13.5 INR 1.3 APTT 37.3, BUN 37, Cr 3.6 eGFR 16, Lactic acid 3.7, AST 43, . In ED, given 3 L LR, Zosyn x1, and Methylprednisolone 125 mg. Once he is stabilized patient was transferred to telemetry. CXR shows significant pneumonia left base and UA shows evidence of UTI. Patient was admitted for further workup. Admitting diagnosis sepsis, pneumonia, UTI. Review of Systems Review of Systems ROS Unobtainable: unobtainable due to mental status Past Medical History Past Medical History NEUROLOGIC: Negative Neurological Disorders or Seizures CARDIAC: Positive Cardiac Disorders, Hypercholesterolemia and Hypertension; Negative Congestive Heart Failure, Edema, Cellulitis or Varicose Veins RESPIRATORY: Negative Chronic Obstructive Pulmonary Disease (COPD), Tuberculosis or Pulmonary Embolism GASTROINTESTINAL: Positive Gastrointestinal Disorders, Gastrointestinal Bleed and Gastroesophageal Reflux Disease; Negative Hepatitis GENITOURINARY: Positive Genitourinary Disorders, Prostate Cancer and Benign Prostatic Hyperplasia; Negative Renal Disease MUSCULOSKELETAL: Positive Musculoskeletal Disorders and Arthritis ENT: Positive Cataracts ENDOCRINE: Negative Endocrine Disorders, Diabetes Mellitus Type 1, Diabetes Mellitus Type 2 or Hypothyroidism HEMATOLOGIC: Positive Anemia; Negative Blood Disorders OTHER HISTORY: Positive Cancer and Prostate Cancer; Negative Hospitalization, Autoimmune Disease, Shingles, Falls, Blood Transfusions, Blood Transfusion Reaction, Anesthesia Reactions, Chemotherapy, Radiation Therapy, MRSA, Chicken Pox, Measles or Mumps Family History FAMILY HISTORY: Positive Family Cardiac Disorders, Family Cancer and Family Surgery; Negative Family Psychiatric Problems, Family Respiratory Disorders, Family Gastrointestinal Problems or Family Anesthesia Reaction Surgical History SURGICAL: Positive Abdominal Surgery, Transurethral Resection and Joint Replacement; Negative Cardiac Surgery or Pacemaker Social History SMOKING STATUS: Never smoker Exam Vital Signs Temp Pulse Resp BP Pulse Ox O2 Del Method O2 Flow Rate 97.8 F 69 20 107/53 L 95 Nasal Cannula 1 01/24/25 14:01/24/25 14:01/24/25 14:01/24/25 14:01/24/25 14:01/24/25 14:01/24/25 14:01 Narrative Exam General: AOx1, somnolent, cold to touch, mildly diaphoretic HEENT: bilateral pinpoint pupils, poor light reflex, dry membranes, bilateral sclera anicteric Cardiovascular: regular rate and rhythm, S1/S2 present, no murmurs appreciated Pulmonary: clear to auscultation bilaterally, no rales/rhonchi/wheezes Abdominal: soft, non-tender, non-distended, no rebound/guarding, bowel sounds present Extremities: no LE edema, mildly edematous arms from elbows to hands Skin: warm and dry, diffuse petechiae on the lower extremities. Extensive maculopapular rash all over the body, nonblanching Neuro patient lethargic and difficult to arouse. Results: Labs 01/24/25 09:40 01/24/25 18:16 Labs: Short CBC 01/24/25 Range/Units 09:40 WBC 25.0 H (3.8-10.6) Thou/mm3 Hgb 13.4 L (13.5-16.0) g/dL Hct 38.0 L (41.0-53.0) % Plt Count 159 (140-440) Thou/mm3 BMP 01/24/25 09:40 Sodium 136 Potassium 4.3 Chloride 100 Carbon Dioxide 24.6 BUN 37 H Creatinine 3.6 H Glucose 218 H Calcium 9.0 Cardiac Enzymes 01/24/25 Range/Units 09:40 Troponin I 0.119 H* (0.0-0.045) ng/mL Liver Function 01/24/25 Range/Units 09:40 Total Bilirubin 1.0 (0.3-1.2) mg/dL AST 43 H (0-34) U/L ALT 19 (10-49) U/L Alkaline Phosphatase 94 (46-116) U/L Albumin 3.6 (3.4-4.8) gm/dL Urine 01/24/25 Range/Units 09:50 Urine Color Drk [place] A (Lt Yel-Yel) Urine Clarity Clear (Clear/Hazy) Urine pH 5.0 (5.0-7.0) Ur Specific [place] >= 1.030 (1.001-1.035) Urine Protein 2+ A (Neg - Trace) Urine Glucose (UA) Trace (Negative) ABG Interpretation ABG results: 01/24/25 10:12 ABG pH 7.45 ABG pCO2 35 ABG pO2 193 H ABG HCO3 24 ABG O2 Saturation 100 H ABG Base Excess 1 Quality Measures Quality Measures VTE prophylaxis and none Advance care planning discussed with:: patient and spouse Medications Home Medications and Allergies Home Medications ?Medication ?Instructions ?Recorded ?Confirmed ?Type doxazosin 2 mg tablet 2 mg PO QDAY 04/14/18 01/24/25 History gabapentin 300 mg capsule 300 mg PO BID 04/14/18 01/24/25 History atorvastatin 10 mg tablet 10 mg PO QDAY 02/21/22 01/24/25 History lisinopril 20 1 tab PO DAILY 02/21/22 01/24/25 History mg-hydrochlorothiazide 12.5 mg tablet ofloxacin 0.3 % ear drops 10 drp otic (ear) BID 02/21/22 01/24/25 History bicalutamide 50 mg tablet 50 mg PO QDAY 01/24/25 01/24/25 History oxybutynin chloride 5 mg tablet 5 mg PO QDAY 01/24/25 01/24/25 History Allergies Allergy/AdvReac Type Severity Reaction Status Date / Time No Known Allergies Allergy Verified 01/24/25 09:39 Visit Medications Acetaminophen (Acetaminophen 325 Mg Tablet) 650 mg PO Q6H PRN PRN Reason: pain 1-3 &/or temp>100.1 Stop: 02/23/25 14:42 Ceftriaxone Sodium/Dextrose (Rocephin/D5w 1gm Iv Premix) 1 gm in 50 mls @ 100 mls/hr IV QDAY JOEL Stop: 01/31/25 14:47 Azithromycin 500 mg/ Sodium (Chloride) 250 mls @ 250 mls/hr IV QDAY JOEL Stop: 01/31/25 14:47 Lactated Ringer's (Lactated Ringers) 1,000 mls @ 125 mls/hr IV .Q8H JOEL Stop: 02/23/25 15:03 Methylprednisolone Sodium Succinate (Methylprednisolone Sod Succ 40 Mg Vial) 40 mg IVP DAILY JOEL Stop: 02/01/25 08:59 Ondansetron HCl (Ondansetron Inj 2 Mg/Ml Inj 2 Ml) 4 mg IVP Q6H PRN; Protocol PRN Reason: NAUSEA OR VOMITING Stop: 02/23/25 14:42 Discontinued Medications Piperacillin/Tazobactam/Dextrose (Zosyn) 3.375 gm in 50 mls @ 100 mls/hr IV X1 ONE Stop: 01/24/25 09:57 Last Infusion: 01/24/25 11:30 Dose: Infused Lactated Ringer's (Lactated Ringers) 1,000 mls @ 999 mls/hr IV .Q1H1M ONE Stop: 01/24/25 10:39 Last Infusion: 01/24/25 10:51 Dose: Infused Lactated Ringer's (Lactated Ringers) 1,000 mls @ 999 mls/hr IV .Q1H1M ONE Stop: 01/24/25 10:39 Last Infusion: 01/24/25 11:05 Dose: Infused Lactated Ringer's (Lactated Ringers) 1,000 mls @ 999 mls/hr IV .Q1H1M ONE Stop: 01/24/25 10:40 Last Infusion: 01/24/25 12:05 Dose: Infused Lactated Ringer's (Lactated Ringers) 1,000 mls @ 90 mls/hr IV .Q11H7M JOEL Stop: 02/23/25 14:44 Methylprednisolone Sodium Succinate (Methylprednisolone Sod Succ 62.5 Mg/Ml 2ml Vial) 125 mg IVP X1 ONE Stop: 01/24/25 09:41 Last Admin: 01/24/25 10:42 Dose: 125 mg Assessment & Plan Plan Iftikhar Haines is a 84M pmhx significant for prostate cancer status post prostatectomy undergoing radiation therapy and HTN who is admitted for septic shock, found to have L lung base pneumonia and UTI. # Septic shock # Left lung base pneumonia # UTI Patient presents with progressive weakness, confusion and somnolence over the past 4 days as well as decreased urine output, per , the past 2 days. BP in ED was 61/41 and WBC elevated at 25, lactic acid 3.7 decreased to 2.1 s/p 3 L LR in ED. Procal elevated at 4.21. Glucose 218. CXR shows significant left lung pneumonia and UA +nitites, trace leukocyte esterase, +RBCs and 2+ bacteria. - s/p Zosyn x1 and methylprednisolone 125 mg in ED - start Ceftriaxone and azithromycin - Methylprednisolone 125 mg for at least three days and then will taper. - start LR 125 mL/hr - hold all home medications for now - f/u CBC, CMP, Mg, Phos, PT/PTT, TSH, A1c, CK - f/u Bcx, UCx # Rash reports rash beginning yesterday 01/23, starting on hands and arms, progressing to chest, back and legs. Denies rash being painful or itchy. On exam diffuse maculopapular rash all over the body with petechial rash on the lower extremities. Warm to touch. Ddx includes uticaria, DRESS syndrome, serum sickness, and highest suspicion of SJS given new medication of bicalutamide. - steroids and fluids as above - start famotidine and benadryl q6 prn - CTM - hold all home medications for now # GABBY Creatinine 3.6 baseline 0.8 in 10/2024. eGFR 16 baseline >60 10/2024. Likely 2/2 septic shock and volume depletion, but ddx includes ATN and AIN. - F/u renal US - Trend Cr - fluids as above - avoid nephrotoxic medications - Continue Garcia with strict I&Os # Elevated lactic acid, resolving Lactic acid on admission 3.7 and decreased to 2.1 s/p 3L of NS in ED. - Continue LR 125 mL/hr - f/u lactic acid # Elevated troponins Likely type II 2/2 demand ischemia in setting of septic shock. Troponins 0.119, and EKG negative for acute ST changes. Denies chest pain. - trend troponins x3 q8h # Normocytic anemia Hgb 13.4 around baseline from 10/2024 of 12.8, MCV 85. - CTM and f/u outpatient Hospital management: Disposition: tele for septic shock 2/2 pneumonia Diet: Renal DVT prophylaxis: SCDs CODE STATUS: Full code Plan of care discussed with attending Dr. Curiel, and PGY-2 Dr. Walls. Traci Pulido, PGY-1 Attending Provider Attestation/Addendum Patient seen and examined with resident physician Dr. Pulido. Note reviewed, agree with findings and recommendations with changes made. Had a long conversation with , son and granddaughter at bedside. Patient with flulike symptoms going on for the last few days and progressive weakness. Rash for the last 24 hours which has been worsening. Decreased urinary output and multiple falls in the last 2 days. On exam patient seems to have patchy maculopapular rash all over the body with a petechial rash at the lower extremities. Acute renal failure with minimal urinary output. Renal ultrasound showed no hydronephrosis. GABBY probably related to ATN from low blood pressure versus AIN Differential diagnosis-viral exanthem vs vasculitis vs IgA vasculitis Patient has been taking bicalutamide since May 2024. No new drugs. Doubt Peng-Kareem's-as rash is painless with no mucosal involvement. Serology ordered. Agree with IV fluids, IV steroids. Spoke to the regarding his renal function and if no improvement will need kidney biopsy //temporary dialysis. wants to proceed with all aggressive measures. Hold off on all medications. Gave him H1 and H2 sasha. Time spent more than 1 hour regarding plan of care and disease management.
[2025-01-24] MEDS: cefTRIAXone/D5w 1gm IV premix 1 GM/50 ML BAG IV (15:20)
[2025-01-24] MEDS: RINGERS LACTATED 1000 ML 1,000 ML 125 ML IV (15:25)
--- NOTE | 2025-01-24 16:24 | PC.NURSE ---
REPORT GIVEN TO GLADYS SALDIVAR
[2025-01-24 16:25] LABS: Troponin I 0.063 ng/mL (0.0-0.045)
--- NOTE | 2025-01-24 17:04 | XR_ITS ---
Examination: Retroperitoneal ultrasound, complete Technique: Multiple high resolution grayscale images of the retroperitoneum obtained, including kidneys and bladder. Exam date and time:January 24, 2025, 1730 hours INDICATIONS: Acute renal insufficiency on laboratory examination today. FINDINGS: Right kidney 10.6 cm renal cortex 1.0 cm Left kidney 9.2 cm renal cortex 1.7 cm Multiple left renal cysts, the largest upper pole 3.9 cm Mild bilateral renal cortical scarring Contracted urinary bladder IMPRESSION: Bilateral renal cortical thinning Benign left renal cysts
[2025-01-24] MEDS: FAMOTIDINE INJ 10 MG/ML VIAL 2 ML 20 MG IVP (17:34)
[2025-01-24 17:43] LABS: Glucose Estimated Average 114 mg/dL (80-131); Hemoglobin A1C 5.6 % Hgb (4.8-6.0)
[2025-01-24] MEDS: AZITHROMYCIN INJ 500 MG in SODIUM CHLORIDE 0.9% 250 ML 250 ML 250 MG IV (18:06)
--- NOTE | 2025-01-24 18:15 | PC.NURSE ---
Pt HR sustaining in the 50's. Dropped to 49 but did not sustain. Called Dr. Curiel and made aware. Magnesium level ordered.
--- NOTE | 2025-01-24 18:26 | PC.NURSE ---
patient heart rate drop to high 40's called dr jewell and made aware, new order to add renal and magnesium to add on previous blood drawn.
--- NOTE | 2025-01-24 18:28 | PC.NURSE ---
Pt has not urinated in two days. Bladder scan 270mL. Dr. Serrano ordered to insert estes catheter.
[2025-01-24 18:35] LABS: Lactate (Lactic Acid) 1.7 mMol/L (0.4-2.0)
[2025-01-24 18:59] LABS: Albumin, Serum 3.3 gm/dL (3.4-4.8); Anion Gap 6 (7-16); BUN/Creatinine Ratio 16 Ratio (12-20); Blood Urea Nitrogen 37 mg/dL (9-23); Calcium 8.8 mg/dL (8.3-10.6); Calcium (Corrected) 9.4 mg/dL (8.5-10.1); Carbon Dioxide 24.7 mMol/L (20.0-31.0); Chloride 105 mMol/L (98-107); Creatine Kinase 714 U/L (34-171); Creatinine (Component) 2.3 mg/dL (0.6-1.3); Estimated Creatinine Clearance 26.9 mL/min (>60); Glucose 189 mg/dL (74-106); Magnesium 1.9 mg/dL (1.6-2.6); Osmolality,Calculated 285 (275-295); Phosphorous 4.0 mg/dL (2.4-5.1); Potassium 4.2 mMol/L (3.4-5.1); Sodium 136 mMol/L (136-145); eGFR 28 See Note
[2025-01-24 23:07] LABS: Troponin I 0.042 ng/mL (0.0-0.045)
[2025-01-25] VITALS: BP 96/54; PULSE 62; PULSE 64; RESP 19; TEMP 36.3; O2SAT 96
[2025-01-25] MEDS: RINGERS LACTATED 1000 ML 1,000 ML 125 ML IV ×3 (00:03→20:04)
[2025-01-25 04:00] VITALS: BP 98/59; PULSE 57; PULSE 60; RESP 18; TEMP 36.1; O2SAT 95
[2025-01-25 06:09] LABS: Basophils # (Auto) 0.1 Thou/mm3 (0.0-0.2); Basophils % (Auto) 0 % (0-2.5); Eosinophils # (Auto) 0.0 Thou/mm3 (0.0-0.5); Eosinophils % (Auto) 0 % (0-10); Hematocrit 36.9 % (41.0-53.0); Hemoglobin 13.2 g/dL (13.5-16.0); Immature Granulocytes Auto 0.36 Thou/mm3 (0.00-0.00); Lymphocytes # (Auto) 0.7 Thou/mm3 (1.0-4.8); Lymphocytes % (Auto) 3 % (10-50); Mean Corpuscular HGB Conc 35.8 g/dl (31.0-37.0); Mean Corpuscular Hemoglobin 30.3 pg (25.0-35.0); Mean Corpuscular Volume 85 fL (80-100); Monocytes # (Auto) 0.4 Thou/mm3 (0.0-0.8); Monocytes % (Auto) 2 % (0-12); Neutrophils # (Auto) 24.3 Thou/mm3 (1.8-7.7); Neutrophils % (Auto) 94 % (37-80); Nucleated Red Blood Cell # 0.00 Thou/mm3 (0.00-0.00); Nucleated Red Blood Cell % 0 /100 WBC (0); Platelet Count 128 Thou/mm3 (140-440); RDW Standard Deviation 41.3 fL (35.1-43.9); Red Blood Count 4.36 Miln/mm3 (4.50-5.90); White Blood Count 25.9 Thou/mm3 (3.8-10.6)
[2025-01-25 06:16] LABS: INR 1.2 (0.9-1.3); Partial Thromboplastin Time 33.0 Seconds (22.0-36.0); Prothrombin Time 12.8 Seconds (9.0-12.2)
[2025-01-25 06:42] LABS: Alanine Aminotransferase 18 U/L (10-49); Albumin, Serum 3.1 gm/dL (3.4-4.8); Albumin/Globulin Ratio 1.3 (1.2-2.2); Alkaline Phosphatase 84 U/L (46-116); Anion Gap 10 (7-16); Aspartate Amino Transferase 33 U/L (0-34); BUN/Creatinine Ratio 20 Ratio (12-20); Bilirubin,Total 0.6 mg/dL (0.3-1.2); Blood Urea Nitrogen 30 mg/dL (9-23); Calcium 8.5 mg/dL (8.3-10.6); Calcium (Corrected) 9.2 mg/dL (8.5-10.1); Carbon Dioxide 25.4 mMol/L (20.0-31.0); Chloride 102 mMol/L (98-107); Creatinine (Component) 1.5 mg/dL (0.6-1.3); Estimated Creatinine Clearance 41.2 mL/min (>60); Globulin 2.4 gm/dL (2.3-3.5); Glucose 156 mg/dL (74-106); Magnesium 1.8 mg/dL (1.6-2.6); Osmolality,Calculated 283 (275-295); Phosphorous 4.0 mg/dL (2.4-5.1); Potassium 3.8 mMol/L (3.4-5.1); Sodium 137 mMol/L (136-145); Thyroid Stimulating Hormone 1.12 uIU/mL (0.55-4.78); Total Protein 5.5 gm/dL (5.7-8.2); Troponin I 0.035 ng/mL (0.0-0.045); eGFR 46 See Note
[2025-01-25 08:00] VITALS: BP 138/77; PULSE 71; RESP 15; TEMP 36.1; O2SAT 97
[2025-01-25] MEDS: cefTRIAXone/D5w 1gm IV premix 1 GM/50 ML BAG IV (08:22)
[2025-01-25] MEDS: FAMOTIDINE INJ 10 MG/ML VIAL 2 ML 20 MG IVP (08:22)
[2025-01-25] MEDS: MethylPREDNISolone SOD SUCC 62.5 MG/ML 2ML VIAL 125 MG IV (08:22)
--- NOTE | 2025-01-25 09:48 | PD.RESPRO ---
Documentation for date of: 01/25/25 Subjective Subjective Interval history: Iftikhar Haines is a 84M pmhx significant for prostate cancer status post prostatectomy years ago with recurrence in in May 2024 undergoing radiation therapy, on Lupron and Casodex , hypertension who presents with several days of weakness and rash all over the body for 1-2 days at bedside and majority of history collected from her. reports that patient began feeling weak and had difficulty walking short distances without feeling fatigued beginning Thursday with gradual worsening, as well as a spreading body rash that started yesterday. also reports that patient has had less urine output the past 2 days and has been slowly getting more confused, sometimes speaking nonsense . Patient has multiple falls yesterday and today. Denies any recent change in medication, travel or diet changes. Denies fever, chest pain, or shortness of breath. 01/25/25: No acute overnight events. Patient was seen and examined at bedside. Family at bedside. Patient is alert and awake this morning, and orientation significantly improved compared to yesterday. Lactic acid decreased 2.1 to 1.7 and WBC still elevated at 25.9. reports giving him home lisinopril this morning, and was educated to not give home medications in hospital. Exam Vital Signs Temp Pulse Resp BP Pulse Ox O2 Del Method O2 Flow Rate 96.9 F 71 15 138/77 H 97 Nasal Cannula 1 01/25/25 08:00 01/25/25 08:00 01/25/25 08:00 01/25/25 08:00 01/25/25 08:00 01/25/25 08:00 01/25/25 08:00 Narrative Exam General: AOx3, no acute distress HEENT: NC/AT, mucous membranes moist, bilateral sclera anicteric Cardiovascular: regular rate and rhythm, S1/S2 present, no murmurs appreciated Pulmonary: clear to auscultation bilaterally, no rales/rhonchi/wheezes Abdominal: soft, non-tender, non-distended, no rebound/guarding, bowel sounds present Extremities: no LE edema, mild edematous arms from elbows to hands Skin: warm and dry, Extensive maculopapular rash all over the body, larger cohesive rash blanches, diffuse petechiae on the lower extremities Neuro CN II-XII grossly intact, no focal deficits, alert, following commands Objective Labs 01/25/25 05:10 01/25/25 05:10 Labs: Laboratory Results - last 24 hr 01/24/25 01/24/25 01/24/25 09:40 09:50 10:12 WBC 25.0 H RBC 4.47 L Hgb 13.4 L Hct 38.0 L MCV 85 MCH 30.0 MCHC 35.3 RDW Std Deviation 42.3 Plt Count 159 Neut % (Auto) 90 H Lymph % (Auto) 2 L [place] % (Auto) 3 Eos % (Auto) 1 Baso % (Auto) 0 Neut # (Auto) 22.4 H Lymph # (Auto) 0.5 L [place] # (Auto) 0.8 Eos # (Auto) 0.3 Baso # (Auto) 0.1 Immature Gran # (Auto) 1.06 H Absolute Nucleated RBC 0.00 Immature Gran % 4 H Nucleated RBC % 0 PT 13.5 H INR 1.3 APTT 37.3 H Puncture Site Left Radial ABG pH 7.45 ABG pCO2 35 ABG pO2 193 H ABG HCO3 24 ABG O2 Saturation 100 H ABG Base Excess 1 Oxygen Liter Flow 1 FiO2 21 Sodium 136 Potassium 4.3 Chloride 100 Carbon Dioxide 24.6 Anion Gap 11 BUN 37 H Creatinine 3.6 H Estim Creat Clear Calc 17.2 L eGFR 16 L BUN/Creatinine Ratio 10 L Glucose [address] Glu mg/dL 114 Hemoglobin A1c 5.6 Calculated Osmolality 287 Lactic Acid 3.7 H Calcium 9.0 Corrected Calcium 9.3 Phosphorus 2.6 Magnesium 1.9 Total Bilirubin 1.0 AST 43 H ALT 19 Alkaline Phosphatase 94 Total Creatine Kinase Troponin I 0.119 H* B-Natriuretic Peptide 32 Total Protein 6.2 Albumin 3.6 Globulin 2.6 Albumin/Globulin Ratio 1.4 Lipase 23 Procalcitonin 4.21 H TSH Ur Collection Type Clean Catch Urine Color Drk [place] A Urine Clarity Clear Urine pH 5.0 Ur Specific [place] >= 1.030 Urine Protein 2+ A Urine Glucose (UA) Trace Urine Ketones 1+ A Urine Blood 2+ A Urine Nitrite Positive A Urine Bilirubin 1+ A Urine Urobilinogen (Auto) 1.0 Ur Leukocyte Esterase Trace Urine RBC 44 H Urine WBC 38 H Ur Squamous Epith Cells 28 H Urine Bacteria 2+ A 01/24/25 01/24/25 01/24/25 13:19 15:36 18:16 WBC RBC Hgb Hct MCV MCH MCHC RDW Std Deviation Plt Count Neut % (Auto) Lymph % (Auto) [place] % (Auto) Eos % (Auto) Baso % (Auto) Neut # (Auto) Lymph # (Auto) [place] # (Auto) Eos # (Auto) Baso # (Auto) Immature Gran # (Auto) Absolute Nucleated RBC Immature Gran % Nucleated RBC % PT INR APTT Puncture Site ABG pH ABG pCO2 ABG pO2 ABG HCO3 ABG O2 Saturation ABG Base Excess Oxygen Liter Flow FiO2 Sodium 136 Potassium 4.2 Chloride 105 Carbon Dioxide 24.7 Anion Gap 6 L BUN 37 H Creatinine 2.3 H D Estim Creat Clear Calc 26.9 L eGFR 28 L BUN/Creatinine Ratio 16 [address]ucose [address] Glu mg/dL Hemoglobin A1c Calculated Osmolality 285 Lactic Acid 2.1 H 1.7 Calcium 8.8 Corrected Calcium 9.4 Phosphorus 4.0 Magnesium 1.9 Total Bilirubin AST ALT Alkaline Phosphatase Total Creatine Kinase 714 H Troponin I 0.063 H* B-Natriuretic Peptide Total Protein Albumin 3.3 L Globulin Albumin/Globulin Ratio Lipase Procalcitonin TSH Ur Collection Type Urine Color Urine Clarity Urine pH Ur Specific [place] Urine Protein Urine Glucose (UA) Urine Ketones Urine Blood Urine Nitrite Urine Bilirubin Urine Urobilinogen (Auto) Ur Leukocyte Esterase Urine RBC Urine WBC Ur Squamous Epith Cells Urine Bacteria 01/24/25 01/25/25 22:30 05:10 WBC 25.9 H RBC 4.36 L Hgb 13.2 L Hct 36.9 L MCV 85 MCH 30.3 MCHC 35.8 RDW Std Deviation 41.3 Plt Count 128 L D Neut % (Auto) 94 H Lymph % (Auto) 3 L [place] % (Auto) 2 Eos % (Auto) 0 Baso % (Auto) 0 Neut # (Auto) 24.3 H Lymph # (Auto) 0.7 L [place] # (Auto) 0.4 Eos # (Auto) 0.0 Baso # (Auto) 0.1 Immature Gran # (Auto) 0.36 H Absolute Nucleated RBC 0.00 Immature Gran % 1 H Nucleated RBC % 0 PT 12.8 H INR 1.2 APTT 33.0 Puncture Site ABG pH ABG pCO2 ABG pO2 ABG HCO3 ABG O2 Saturation ABG Base Excess Oxygen Liter Flow FiO2 Sodium 137 Potassium 3.8 Chloride 102 Carbon Dioxide 25.4 Anion Gap 10 BUN 30 H Creatinine 1.5 H D Estim Creat Clear Calc 41.2 L eGFR 46 L BUN/Creatinine Ratio [address]ucose [address] Glu mg/dL Hemoglobin A1c Calculated Osmolality 283 Lactic Acid Calcium 8.5 Corrected Calcium 9.2 Phosphorus 4.0 Magnesium 1.8 Total Bilirubin 0.6 AST 33 ALT 18 Alkaline Phosphatase 84 Total Creatine Kinase Troponin I 0.042 0.035 B-Natriuretic Peptide Total Protein 5.5 L Albumin 3.1 L Globulin 2.4 Albumin/Globulin Ratio 1.3 Lipase Procalcitonin TSH 1.12 Ur Collection Type Urine Color Urine Clarity Urine pH Ur Specific [place] Urine Protein Urine Glucose (UA) Urine Ketones Urine Blood Urine Nitrite Urine Bilirubin Urine Urobilinogen (Auto) Ur Leukocyte Esterase Urine RBC Urine WBC Ur Squamous Epith Cells Urine Bacteria ABG Interpretation ABG results: 01/24/25 10:12 ABG pH 7.45 ABG pCO2 35 ABG pO2 193 H ABG HCO3 24 ABG O2 Saturation 100 H ABG Base Excess 1 Quality Measures Quality Measures VTE prophylaxis and none Advance care planning discussed with:: patient Assessment & Plan Assessment Current Active Medications: Generic Name Dose Route Start Last Admin Trade Name Freq PRN Reason Stop Dose Admin Acetaminophen 650 mg 01/24/25 14:43 Acetaminophen 325 Mg Tablet PO 02/23/25 14:42 Q6H PRN pain 1-3 &/or temp>100.1 Diphenhydramine HCl 12.5 mg 01/24/25 17:07 Diphenhydramine Inj 50 Mg/Ml Vial IVP 02/23/25 17:06 Q6HR PRN ITCHING Famotidine 20 mg 01/24/25 17:15 01/25/25 08:22 Famotidine Inj 10 Mg/Ml Vial 2 Ml IVP 02/23/25 17:14 20 mg QDAY JOEL Administration Ceftriaxone Sodium/Dextrose 1 gm in 50 mls @ 100 mls/hr 01/24/25 14:48 01/25/25 08:22 Rocephin/D5w 1gm Iv Premix IV 01/31/25 14:47 100 mls/hr QDAY JOEL Administration Lactated Ringer's 1,000 mls @ 125 mls/hr 01/24/25 15:04 01/25/25 08:23 Lactated Ringers IV 02/23/25 15:03 125 mls/hr .Q8H JOEL Administration Azithromycin 500 mg/ Sodium 250 mls @ 250 mls/hr 01/24/25 17:45 01/24/25 18:06 Chloride IV 01/31/25 17:44 250 mls/hr QDAY@2100 JOEL Administration Methylprednisolone Sodium Succinate 125 mg 01/25/25 09:00 01/25/25 08:22 Methylprednisolone Sod Succ 62.5 Mg/Ml 2ml Vial IV 02/01/25 08:59 125 mg QDAY JOEL Administration Ondansetron HCl 4 mg 01/24/25 14:43 Ondansetron Inj 2 Mg/Ml Inj 2 Ml IVP 02/23/25 14:42 Q6H PRN NAUSEA OR VOMITING Protocol Plan Iftikhar Haines is a 84M pmhx significant for prostate cancer status post prostatectomy undergoing radiation therapy and HTN who is admitted for septic shock, found to have L lung base pneumonia and UTI. # Septic shock, resolved # Left lung base pneumonia # UTI Patient presents with progressive weakness, confusion and somnolence over the past 4 days as well as decreased urine output, per , the past 2 days. 01/24 CXR significant left lung pneumonia and UA +nitites, trace leukocyte esterase, +RBCs and 2+ bacteria. WBC still elevated at 25.9, lactic acid decreased from 2.1 to 1.7. CK 714 possibly 2/2 multiple recent falls, medication-induced, or sepsis. - s/p Zosyn x1 and methylprednisolone 125 mg in ED - Ceftriaxone and azithromycin (01/25- - Methylprednisolone 125 mg for at least three days and then will taper. - LR 125 mL/hr - hold all home medications for now - f/u Bcx, UCx # Rash reports rash beginning yesterday 01/23, starting on hands and arms, progressing to chest, back and legs. Denies rash being painful or itchy. On exam diffuse maculopapular rash all over the body with petechial rash on the lower extremities. Warm to touch. Given recent viral-like sickness, ddx includes viral xanthem vs vasculitis. Ddx includes IgA vasculitis, Valley Fever rash, uticaria, DRESS syndrome, serum sickness. Less likely SJS as bicalutamide started May 2024. - steroids and fluids as above - start famotidine and benadryl q6 prn - CTM - hold all home medications for now - f/u GEN, ANCA, C3/C4, cocci serology, IgA # GABBY, resolving Creatinine 3.6 and eGFR 16 on admission. No hx of kidney disease. Likely 2/2 septic shock and volume depletion, but ddx includes ATN and AIN. Cr and eGFR improved at .8 and 46. Renal US showed b/l renal cortical thinning and multiple benign L renal cysts. - Trend Cr - fluids as above - avoid nephrotoxic medications - Continue Garcia with strict I&Os # Normocytic anemia Hgb 13.4 around baseline from 10/2024 of 12.8, MCV 85. - CTM and f/u outpatient # Elevated lactic acid, resolved Lactic acid 3.7 --> 2.1 --> 1.7 # Elevated troponins, resolved Likely type II 2/2 demand ischemia in setting of septic shock. Admission EKG negative for acute ST changes. Troponins 0.119, 0.063, 0.042, 0.035. Hospital management: Disposition: tele for septic shock 2/2 pneumonia Diet: Renal DVT prophylaxis: SCDs CODE STATUS: Full code Plan of care discussed with attending Dr. Curiel, and PGY-2 Dr. Walls. Traci Pulido, PGY-1 Attending Provider Attestation/Addendum Patient seen and examined with resident physician Dr. Pulido. Note reviewed, agree with findings and recommendations with changes made. Had a long conversation with , son and granddaughter at bedside. Patient with flulike symptoms going on for the last few days and progressive weakness. Rash for the last 24 hours which has been worsening. Decreased urinary output and multiple falls in the last 2 days. On exam patient seems to have patchy maculopapular rash all over the body with a petechial rash at the lower extremities. Acute renal failure with minimal urinary output. Renal ultrasound showed no hydronephrosis. GABBY probably related to ATN from low blood pressure versus AIN Differential diagnosis-viral exanthem vs vasculitis vs IgA vasculitis Patient has been taking bicalutamide since May 2024. No new drugs. Doubt Peng-Kareem's-as rash is painless with no mucosal involvement. Serology ordered. Agree with IV fluids, IV steroids. Spoke to the regarding his renal function and if no improvement will need kidney biopsy //temporary dialysis. wants to proceed with all aggressive measures. Hold off on all medications. Gave him H1 and H2 sasha. Time spent more than 1 hour regarding plan of care and disease management. 01/25/2025 patient currently seen in telemetry. , son at bedside. Marked improvement in his mentation. Rash stabilized. No fever or chills. White count still elevated at 25,000. Continue with antibiotics, steroids. Physical therapy and home health will be ordered.
--- NOTE | 2025-01-25 11:50 | PC.SS ---
Patient is a 84 Year old male admitted for Septic Shock, PNA. SS met with patient and patient's , Iris Haines at bedside to discuss discharge plan and verify demographic information. Patient's reports patient lives at home with her, she reports she is patient's surrogate decision maker, [phone]. Patient reports patient utilizes a cane and Rollator walker to assist with ambulation. Patient is able to perform all ADL's independently. Choice of pharmacy is [facility]. Patient's PCP is Dr. Laquita Serrano. At time of discharge family will provide transportation. Next of kin: , Iris Haines Discharge plan: Home
[2025-01-25 12:00] VITALS: BP 161/90; PULSE 71; PULSE 86; RESP 22; TEMP 36.1; O2SAT 94
[2025-01-25 12:10] LABS: Cocci Serology, IgM Negative (Negative)
--- NOTE | 2025-01-25 12:12 | PC.SS ---
SS follow up note; Patient is on IV ABX, still getting treated, once medically cleared, patient will return back home.
[2025-01-25 14:13] LABS: Troponin I 0.033 ng/mL (0.0-0.045)
--- NOTE | 2025-01-25 14:33 | PC.PT ---
Patient is safe to ambulate to the bathroom and in the halls with 1 staff assist and a FWW. RN made aware.
[2025-01-25 16:00] VITALS: BP 137/87; PULSE 70; PULSE 84; RESP 25; TEMP 36.1; O2SAT 95
[2025-01-25] MEDS: LACTULOSE SYRUP 20 GM/30 ML UDC PO (18:57)
[2025-01-25 20:00] VITALS: BP 147/94; PULSE 74; PULSE 79; RESP 20; TEMP 36.1; O2SAT 95
[2025-01-25] MEDS: AZITHROMYCIN INJ 500 MG in SODIUM CHLORIDE 0.9% 250 ML 250 ML 250 MG IV (20:04)
[2025-01-26] VITALS (13 sets, daily range): BP systolic 140–181; BP diastolic 81–105; PULSE 64–103; RESP 15–24; TEMP 36.1–38.3; O2SAT 93–96
[2025-01-26] MEDS: RINGERS LACTATED 1000 ML 1,000 ML 125 ML IV ×2 (04:46→15:09)
[2025-01-26 06:02] LABS: Basophils # (Auto) 0.1 Thou/mm3 (0.0-0.2); Basophils % (Auto) 0 % (0-2.5); Eosinophils # (Auto) 0.0 Thou/mm3 (0.0-0.5); Eosinophils % (Auto) 0 % (0-10); Hematocrit 35.5 % (41.0-53.0); Hemoglobin 12.3 g/dL (13.5-16.0); Immature Granulocytes Auto 0.42 Thou/mm3 (0.00-0.00); Lymphocytes # (Auto) 0.8 Thou/mm3 (1.0-4.8); Lymphocytes % (Auto) 3 % (10-50); Mean Corpuscular HGB Conc 34.6 g/dl (31.0-37.0); Mean Corpuscular Hemoglobin 30.1 pg (25.0-35.0); Mean Corpuscular Volume 87 fL (80-100); Monocytes # (Auto) 0.9 Thou/mm3 (0.0-0.8); Monocytes % (Auto) 4 % (0-12); Neutrophils # (Auto) 23.9 Thou/mm3 (1.8-7.7); Neutrophils % (Auto) 91 % (37-80); Nucleated Red Blood Cell # 0.00 Thou/mm3 (0.00-0.00); Nucleated Red Blood Cell % 0 /100 WBC (0); Platelet Count 131 Thou/mm3 (140-440); RDW Standard Deviation 41.7 fL (35.1-43.9); Red Blood Count 4.08 Miln/mm3 (4.50-5.90); White Blood Count 26.2 Thou/mm3 (3.8-10.6)
[2025-01-26 06:37] LABS: Anion Gap 9 (7-16); BUN/Creatinine Ratio 23 Ratio (12-20); Blood Urea Nitrogen 21 mg/dL (9-23); Carbon Dioxide 25.1 mMol/L (20.0-31.0); Chloride 102 mMol/L (98-107); Creatinine (Component) 0.9 mg/dL (0.6-1.3); Estimated Creatinine Clearance 68.7 mL/min (>60); Potassium 3.3 mMol/L (3.4-5.1); Sodium 136 mMol/L (136-145); eGFR > 60 See Note
[2025-01-26 06:38] LABS: Alanine Aminotransferase 22 U/L (10-49); Albumin, Serum 3.1 gm/dL (3.4-4.8); Albumin/Globulin Ratio 1.3 (1.2-2.2); Alkaline Phosphatase 89 U/L (46-116); Aspartate Amino Transferase 30 U/L (0-34); Bilirubin,Total 0.4 mg/dL (0.3-1.2); Calcium 8.6 mg/dL (8.3-10.6); Calcium (Corrected) 9.3 mg/dL (8.5-10.1); Globulin 2.4 gm/dL (2.3-3.5); Glucose 188 mg/dL (74-106); Osmolality,Calculated 279 (275-295); Total Protein 5.5 gm/dL (5.7-8.2)
--- NOTE | 2025-01-26 07:05 | PD.RESPRO ---
Documentation for date of: 01/26/25 Subjective Subjective Interval history: Iftikhar Haines is a 84M pmhx significant for prostate cancer status post prostatectomy years ago with recurrence in in May 2024 undergoing radiation therapy, on Lupron and Casodex , hypertension who presents with several days of weakness and rash all over the body for 1-2 days at bedside and majority of history collected from her. reports that patient began feeling weak and had difficulty walking short distances without feeling fatigued beginning Thursday with gradual worsening, as well as a spreading body rash that started yesterday. also reports that patient has had less urine output the past 2 days and has been slowly getting more confused, sometimes speaking nonsense . Patient has multiple falls yesterday and today. Denies any recent change in medication, travel or diet changes. Denies fever, chest pain, or shortness of breath. 01/25/25: No acute overnight events. Patient was seen and examined at bedside. Family at bedside. Patient is alert and awake this morning, and orientation significantly improved compared to yesterday. Lactic acid decreased 2.1 to 1.7 and WBC still elevated at 25.9. reports giving him home lisinopril this morning, and was educated to not give home medications in hospital. 01/26/25: No acute overnight events. Patient was seen and examined at bedside. also at bedside. Patient is alert and well-appearing. Patient is feeling well today is to go home. Rashes more stable today, not spreading. No new complaints. With blood cell count still elevated at 26.2. Blood pressure this morning 151/81 and consistently high throughout the night. Exam Vital Signs Temp Pulse Resp BP Pulse Ox O2 Del Method O2 Flow Rate 97.9 F 72 18 151/81 H 95 Room Air 1 01/26/25 04:00 01/26/25 04:00 01/26/25 04:00 01/26/25 06:30 01/26/25 04:00 01/26/25 04:00 01/26/25 04:00 Narrative Exam General: AOx3, no acute distress HEENT: NC/AT, mucous membranes moist, bilateral sclera anicteric Cardiovascular: regular rate and rhythm, S1/S2 present, no murmurs appreciated Pulmonary: clear to auscultation bilaterally, no rales/rhonchi/wheezes Abdominal: soft, non-tender, non-distended, no rebound/guarding, bowel sounds present Extremities: no peripheral edema Skin: warm and dry, Extensive, improved maculopapular rash all over the body, diffuse petechiae on the lower extremities Neuro CN II-XII grossly intact, no focal deficits, alert, following commands Objective Labs 01/27/25 00:12 01/27/25 00:12 Labs: Laboratory Results - last 24 hr 01/25/25 01/25/25 01/26/25 09:23 13:40 04:57 WBC 26.2 H RBC 4.08 L Hgb 12.3 L Hct 35.5 L MCV 87 MCH 30.1 MCHC 34.6 RDW Std Deviation 41.7 Plt Count 131 L Neut % (Auto) 91 H Lymph % (Auto) 3 L [place] % (Auto) 4 Eos % (Auto) 0 Baso % (Auto) 0 Neut # (Auto) 23.9 H Lymph # (Auto) 0.8 L [place] # (Auto) 0.9 H Eos # (Auto) 0.0 Baso # (Auto) 0.1 Immature Gran # (Auto) 0.42 H Absolute Nucleated RBC 0.00 Immature Gran % 2 H Nucleated RBC % 0 Sodium 136 Potassium 3.3 L D Chloride 102 Carbon Dioxide 25.1 Anion Gap 9 BUN 21 Creatinine 0.9 D Estim Creat Clear Calc 68.7 eGFR > 60 BUN/Creatinine Ratio 23 H Glucose 188 H Calculated Osmolality 279 Calcium 8.6 Corrected Calcium 9.3 Total Bilirubin 0.4 AST 30 ALT 22 Alkaline Phosphatase 89 Troponin I 0.033 Total Protein 5.5 L Albumin 3.1 L Globulin 2.4 Albumin/Globulin Ratio 1.3 Coccidioides IgM Ab Negative ABG Interpretation ABG results: 01/24/25 10:12 ABG pH 7.45 ABG pCO2 35 ABG pO2 193 H ABG HCO3 24 ABG O2 Saturation 100 H ABG Base Excess 1 Quality Measures Quality Measures VTE prophylaxis and none Advance care planning discussed with:: spouse Assessment & Plan Assessment Current Active Medications: Generic Name Dose Route Start Last Admin Trade Name Freq PRN Reason Stop Dose Admin Acetaminophen 650 mg 01/24/25 14:43 Acetaminophen 325 Mg Tablet PO 02/23/25 14:42 Q6H PRN pain 1-3 &/or temp>100.1 Diphenhydramine HCl 12.5 mg 01/24/25 17:07 Diphenhydramine Inj 50 Mg/Ml Vial IVP 02/23/25 17:06 Q6HR PRN ITCHING Famotidine 20 mg 01/24/25 17:15 01/25/25 08:22 Famotidine Inj 10 Mg/Ml Vial 2 Ml IVP 02/23/25 17:14 20 mg QDAY JOEL Administration Ceftriaxone Sodium/Dextrose 1 gm in 50 mls @ 100 mls/hr 01/24/25 14:48 01/25/25 08:22 Rocephin/D5w 1gm Iv Premix IV 01/31/25 14:47 100 mls/hr QDAY JOEL Administration Lactated Ringer's 1,000 mls @ 125 mls/hr 01/24/25 15:04 01/26/25 04:46 Lactated Ringers IV 02/23/25 15:03 125 mls/hr .Q8H JOEL Administration Azithromycin 500 mg/ Sodium 250 mls @ 250 mls/hr 01/24/25 17:45 01/25/25 20:04 Chloride IV 01/31/25 17:44 250 mls/hr QDAY@2100 JOEL Administration Lactulose 20 gm 01/25/25 18:45 01/25/25 18:57 Lactulose Syrup 20 Gm/30 Ml Udc PO 02/24/25 18:44 20 gm QAM JOEL Administration Protocol Methylprednisolone Sodium Succinate 125 mg 01/25/25 09:00 01/25/25 08:22 Methylprednisolone Sod Succ 62.5 Mg/Ml 2ml Vial IV 02/01/25 08:59 125 mg QDAY JOLE Administration Ondansetron HCl 4 mg 01/24/25 14:43 Ondansetron Inj 2 Mg/Ml Inj 2 Ml IVP 02/23/25 14:42 Q6H PRN NAUSEA OR VOMITING Protocol Plan Iftikhar Haines is a 84M pmhx significant for prostate cancer status post prostatectomy undergoing radiation therapy and HTN who is admitted for septic shock, found to have L lung base pneumonia. # Septic shock, resolved # Left lung base pneumonia # Hyperglycemia 2/2 steroids Presented with progressive weakness, confusion and somnolence and decreased urine output. 01/24 CXR significant left lung pneumonia. WBC still elevated at 26.2 likely 2/2 high steroids. BCx NGTD, UCx NGTD. Plan: - s/p Zosyn x1 and methylprednisolone 125 mg in ED - Ceftriaxone and azithromycin (01/25- - Stop methylprednisolone 125 and start prednisone 20 mg PO QD - LR 125 mL/hr - start SSI # HTN Initial BP very low due to septic shock, now after fluids and antibiotics, BP ranges from 140-175 systolic over 70 to 90s diastolic. Plan: - start Lisinopril 20 mg QD - continue to hold home BP medications # Rash, improving Diffuse maculopapular rash all over the body present with petechial rash on the lower extremities. Given recent viral-like sickness, ddx includes viral xanthem vs vasculitis. Ddx includes IgA vasculitis, Valley Fever rash, uticaria, DRESS syndrome, serum sickness. Coccidioides IgM negative. Plan: - steroids and fluids as above - continue famotidine and benadryl q6 prn - CTM - hold all home medications for now - f/u GEN, ANCA, C3/C4, IgA # GABBY, resolved Creatinine 3.6 and eGFR 16 on admission. No hx of kidney disease. Likely 2/2 septic shock and volume depletion. Renal US showed b/l renal cortical thinning and multiple benign L renal cysts. Cr and GFR improved. Plan: - avoid nephrotoxic medications - remove Garcia # Normocytic anemia Hgb 13.4 around baseline from 10/2024 of 12.8, MCV 85. - CTM and f/u outpatient # Elevated lactic acid, resolved Lactic acid 3.7 --> 2.1 --> 1.7 # Elevated troponins, resolved Likely type II 2/2 demand ischemia in setting of septic shock. Admission EKG negative for acute ST changes. Troponins 0.119, 0.063, 0.042, 0.035. Hospital management: Disposition: tele for septic shock 2/2 pneumonia Diet: carbohydrate consistent low DVT prophylaxis: SCDs CODE STATUS: Full code Plan of care discussed with attending Dr. Curiel, and PGY-2 Dr. Walls. Traci Pulido DO, PGY-1 Attending Provider Attestation/Addendum Patient seen and examined with resident physician Dr. Pulido. Note reviewed, agree with findings and recommendations with changes made. Had a long conversation with , son and granddaughter at bedside. Patient with flulike symptoms going on for the last few days and progressive weakness. Rash for the last 24 hours which has been worsening. Decreased urinary output and multiple falls in the last 2 days. On exam patient seems to have patchy maculopapular rash all over the body with a petechial rash at the lower extremities. Acute renal failure with minimal urinary output. Renal ultrasound showed no hydronephrosis. GABBY probably related to ATN from low blood pressure versus AIN Differential diagnosis-viral exanthem vs vasculitis vs IgA vasculitis Patient has been taking bicalutamide since May 2024. No new drugs. Doubt Peng-Kareem's-as rash is painless with no mucosal involvement. Serology ordered. Agree with IV fluids, IV steroids. Spoke to the regarding his renal function and if no improvement will need kidney biopsy //temporary dialysis. wants to proceed with all aggressive measures. Hold off on all medications. Gave him H1 and H2 sasha. Time spent more than 1 hour regarding plan of care and disease management. 01/25/2025 patient currently seen in telemetry. , son at bedside. Marked improvement in his mentation. Rash stabilized. No fever or chills. White count still elevated at 25,000. Continue with antibiotics, steroids. Physical therapy and home health will be ordered. 01/26/2025 patient currently seen in telemetry. Iris at bedside. Clinically he seems to have marked improvement in mentation. Rash persists although stable. No fever no chills. White count elevated to 26,000. Will switch Solu-Medrol to p.o. prednisone. Continue with antibiotics, physical therapy and home health will be ordered. If clinically stable will plan for discharge in the next 1 to 2 days.
[2025-01-26] MEDS: LACTULOSE SYRUP 20 GM/30 ML UDC PO (08:24)
[2025-01-26] MEDS: FAMOTIDINE INJ 10 MG/ML VIAL 2 ML 20 MG IVP (08:24)
[2025-01-26] MEDS: cefTRIAXone/D5w 1gm IV premix 1 GM/50 ML BAG IV (08:25)
[2025-01-26 10:57] LABS: Cocci Serology, IgG Negative (Negative)
[2025-01-26] MEDS: INSULIN LISPRO (AdmeLOG) 1 UNIT/0.01 ML UNIT SC ×3 (11:56→21:16)
[2025-01-26] MEDS: AZITHROMYCIN INJ 500 MG in SODIUM CHLORIDE 0.9% 250 ML 250 ML 250 MG IV (22:26)
--- NOTE | 2025-01-26 23:59 | EKG_ITS ---
[facility] Test Date: 2025-01-27 Pat Name: DANIEL GARCIA [facility] Gender: Male [employer] Sales Representative: OLEG : 1940 Requested By: Herman Ramirez Order Number: [id number] Reading MD: Herman Ramirez Measurements Intervals [place] Rate: 105 P: 33 [place]: 153 QRS: 51 QRSD: 104 T: 3 QT: 332 QTc: 440 Interpretive Statements SINUS TACHYCARDIA WITH FREQUENT VENTRICULAR PREMATURE COMPLEXES ABNORMAL RHYTHM ECG Compared to ECG 01/24/2025 09:51:35 Ventricular premature complex(es) now present Sinus rhythm no longer present /store/S0/[id number].pdf
[2025-01-27] VITALS (17 sets, daily range): BP systolic 144–194; BP diastolic 85–119; PULSE 66–109; RESP 19–25; TEMP 36.1–38.3; O2SAT 93–99; BMI 32.1
--- NOTE | 2025-01-27 00:03 | XR_ITS ---
Examination: AP chest single view Technique AP portable upright chest single view Date and time: January 27, 2025 0015 hours Comparison January 24, 2025 INDICATIONS: Sepsis chest pain today. FINDINGS: Suspicious for early pneumonia at the right base Mild prominence left ventricle Moderate vascular congestion. IMPRESSION: Suspicious for early pneumonia right base
--- NOTE | 2025-01-27 00:07 | XR_ITS ---
Examination: CT brain head without contrast. 2-D sagittal coronal reconstructions Date and time of exam:January 27, 2025 0251 hours INDICATIONS: Diagnosis confusion, acute encephalopathy, combat off today, diagnosis prostate cancer CTDI: vol (mGy):50.32 DLP: (mGycm):1101 Technique: Multiple CT axial sections of the brain have been obtained, 5 mm slice thickness. Contrast has not been administered. 2-D sagittal, coronal reconstructions have been obtained Low dose protocols were performed. One or more of the following dose reduction techniques were used; automated exposure control, adjustment of the mA and/or KV according to patient size, use of iterative reconstruction technique. Findings: No significant ventricular enlargement. 4 x 4 centimeter calcified mass posterior left cerebral falx most consistent with meningioma Intra-axial or extra-axial hemorrhage density is not seen. No mass effect or midline shift Basal cisterns are not remarkable. Fourth ventricle is midline. Cranial vault intact. Impression: Negative for acute hemorrhage, mass effect or midline shift 4 x 4 centimeters calcified mass posterior left cerebral falx most consistent with meningioma, consider follow-up brain MRI
--- NOTE | 2025-01-27 00:08 | PD.RESEVENT ---
Documentation for date of: 01/27/25 Event Note Event Note: Rapid response called sometime around 12 AM for patient in room 279 for confusion. Patient seen and examined in hospital bed alert oriented x 1 (to person) but answering questions appropriately in [place]vian. Patient's vitals included temperature of 100.9 ?F, tachycardia with heart rate fluctuating between 100-110 but otherwise saturating well with elevated blood pressure 170/100. Ordered CMP, CBC, lactic acid, troponin which were largely negative. Also ordered chest x-ray and EKG along with CT head to assess for any potential brain bleed. Also gave patient 500 cc bolus of NS as he was tachycardic and met sepsis criteria. Noticed that the patient's 1 set of blood cultures was positive for staph epi; as result reordered another set of blood cultures and change antibiotics to IV Zosyn [id number]. Will continue to monitor the patient for any acute changes. Herman Ramirez, DO PGY-2 Internal Medicine - [facility]
[2025-01-27] MEDS: MethylPREDNISolone SOD SUCC 62.5 MG/ML 2ML VIAL 125 MG IVP (00:18)
[2025-01-27] MEDS: LABETALOL INJ 5 MG/ML VIAL 20 ML 10 MG IVP ×2 (00:21→15:18)
[2025-01-27] MEDS: SODIUM CHLORIDE 0.9% 500 ML 500 ML 999 ML IV (00:28)
[2025-01-27 00:31] LABS: Lactate (Lactic Acid) 1.9 mMol/L (0.4-2.0)
[2025-01-27 00:35] LABS: Basophils # (Auto) 0.1 Thou/mm3 (0.0-0.2); Basophils % (Auto) 0 % (0-2.5); Eosinophils # (Auto) 0.2 Thou/mm3 (0.0-0.5); Eosinophils % (Auto) 1 % (0-10); Hematocrit 38.8 % (41.0-53.0); Hemoglobin 13.5 g/dL (13.5-16.0); Immature Granulocytes Auto 1.20 Thou/mm3 (0.00-0.00); Lymphocytes # (Auto) 1.4 Thou/mm3 (1.0-4.8); Lymphocytes % (Auto) 5 % (10-50); Mean Corpuscular HGB Conc 34.8 g/dl (31.0-37.0); Mean Corpuscular Hemoglobin 29.9 pg (25.0-35.0); Mean Corpuscular Volume 86 fL (80-100); Monocytes # (Auto) 0.8 Thou/mm3 (0.0-0.8); Monocytes % (Auto) 3 % (0-12); Neutrophils # (Auto) 22.8 Thou/mm3 (1.8-7.7); Neutrophils % (Auto) 86 % (37-80); Nucleated Red Blood Cell # 0.02 Thou/mm3 (0.00-0.00); Nucleated Red Blood Cell % 0 /100 WBC (0); Platelet Count 146 Thou/mm3 (140-440); RDW Standard Deviation 41.6 fL (35.1-43.9); Red Blood Count 4.52 Miln/mm3 (4.50-5.90); White Blood Count 26.5 Thou/mm3 (3.8-10.6)
[2025-01-27] MEDS: PIPER/TAZO 3.375 GM PREMIX 3.375 GM/50 ML BAG IV ×4 (00:35→17:07)
[2025-01-27 01:02] LABS: Alanine Aminotransferase 59 U/L (10-49); Albumin, Serum 3.5 gm/dL (3.4-4.8); Albumin/Globulin Ratio 1.3 (1.2-2.2); Alkaline Phosphatase 93 U/L (46-116); Anion Gap 10 (7-16); Aspartate Amino Transferase 69 U/L (0-34); BUN/Creatinine Ratio 18 Ratio (12-20); Bilirubin,Total 0.7 mg/dL (0.3-1.2); Blood Urea Nitrogen 14 mg/dL (9-23); Calcium 8.6 mg/dL (8.3-10.6); Calcium (Corrected) 9.0 mg/dL (8.5-10.1); Carbon Dioxide 24.0 mMol/L (20.0-31.0); Chloride 102 mMol/L (98-107); Creatinine (Component) 0.8 mg/dL (0.6-1.3); Estimated Creatinine Clearance 77.3 mL/min (>60); Globulin 2.6 gm/dL (2.3-3.5); Glucose 127 mg/dL (74-106); Osmolality,Calculated 274 (275-295); Potassium 3.7 mMol/L (3.4-5.1); Sodium 136 mMol/L (136-145); Total Protein 6.1 gm/dL (5.7-8.2); Troponin I 0.042 ng/mL (0.0-0.045); eGFR > 60 See Note
[2025-01-27] MEDS: LORazepam 2 MG/ML VIAL 0.5 MG IVP ×2 (01:08→13:46)
[2025-01-27] MEDS: Magnesium Sulfate 4 GM Ivpb 4 GM/50 ML BAG IV (01:15)
[2025-01-27] MEDS: HALOPERIDOL LACT INJ 5 MG/ML VIAL IM (01:50)
--- NOTE | 2025-01-27 02:29 | PC.NURSE ---
Per Dr. Pang, okay to draw blood for ammonia with the AM draws. Will let labs know.
--- NOTE | 2025-01-27 02:38 | PC.NURSE ---
Dr. Ramirez here to update patient's regarding the labs and other tests that were done.
--- NOTE | 2025-01-27 02:40 | PC.NURSE ---
Pt down to CT for CT of the head.
--- NOTE | 2025-01-27 03:32 | PRELIM_ITS ---
CT scan of the head without intravenous contrast (axial sections with sagittal and coronal reformats) January 27, 2025 0251 hours Clinical history: Acute encephalopathy, no neurological deficit Findings: There is an extra-axial calcified lesion measuring 4.1x 4.3x2.7 cm at the falx.There is no evidence of intracranial hemorrhage, mass effect or midline shift. There are periventricular white matter hypodensities, compatible with chronic small vessel ischemia. There is mild volume loss. The calvarium is unremarkable. The mastoid air cells and the visualized paranasal sinuses are clear. Impression: No evidence of intracranial hemorrhage, mass effect or midline shift. Periventricular chronic small vessel ischemia and volume loss. Extra-axial calcified lesion at the falx, which may represent calcified meningioma. Recommend comparison with prior studies. Report Electronically Signed By: Faizan Maldonado 01/27/2025 3:32:02 AM [EST]
[2025-01-27] MEDS: RINGERS LACTATED 1000 ML 1,000 ML 125 ML IV (04:48)
[2025-01-27 07:41] LABS: Basophils # (Auto) 0.1 Thou/mm3 (0.0-0.2); Basophils % (Auto) 0 % (0-2.5); Eosinophils # (Auto) 0.0 Thou/mm3 (0.0-0.5); Eosinophils % (Auto) 0 % (0-10); Hematocrit 37.3 % (41.0-53.0); Hemoglobin 13.0 g/dL (13.5-16.0); Immature Granulocytes Auto 1.10 Thou/mm3 (0.00-0.00); Lymphocytes # (Auto) 1.3 Thou/mm3 (1.0-4.8); Lymphocytes % (Auto) 5 % (10-50); Mean Corpuscular HGB Conc 34.9 g/dl (31.0-37.0); Mean Corpuscular Hemoglobin 30.1 pg (25.0-35.0); Mean Corpuscular Volume 86 fL (80-100); Monocytes # (Auto) 0.6 Thou/mm3 (0.0-0.8); Monocytes % (Auto) 2 % (0-12); Neutrophils # (Auto) 24.2 Thou/mm3 (1.8-7.7); Neutrophils % (Auto) 89 % (37-80); Nucleated Red Blood Cell # 0.02 Thou/mm3 (0.00-0.00); Nucleated Red Blood Cell % 0 /100 WBC (0); Platelet Count 137 Thou/mm3 (140-440); RDW Standard Deviation 42.3 fL (35.1-43.9); Red Blood Count 4.32 Miln/mm3 (4.50-5.90); White Blood Count 27.3 Thou/mm3 (3.8-10.6)
[2025-01-27 07:57] LABS: Ammonia < 10 uMol/L (11-32)
--- NOTE | 2025-01-27 08:36 | ESPR_ITS ---
Documentation for date of: 01/27/25 Subjective Subjective Interval history: Iftikhar Haines is a 84M pmhx significant for prostate cancer status post prostatectomy years ago with recurrence in in May 2024 undergoing radiation therapy, on Lupron and Casodex , hypertension who presents with several days of weakness and rash all over the body for 1-2 days at bedside and majority of history collected from her. reports that patient began feeling weak and had difficulty walking short distances without feeling fatigued beginning Thursday with gradual worsening, as well as a spreading body rash that started yesterday. also reports that patient has had less urine output the past 2 days and has been slowly getting more confused, sometimes speaking nonsense . Patient has multiple falls yesterday and today. Denies any recent change in medication, travel or diet changes. Denies fever, chest pain, or shortness of breath. 01/25/25: No acute overnight events. Patient was seen and examined at bedside. Family at bedside. Patient is alert and awake this morning, and orientation significantly improved compared to yesterday. Lactic acid decreased 2.1 to 1.7 and WBC still elevated at 25.9. reports giving him home lisinopril this morning, and was educated to not give home medications in hospital. 01/26/25: No acute overnight events. Patient was seen and examined at bedside. also at bedside. Patient is alert and well-appearing. Patient is feeling well today is to go home. Rashes more stable today, not spreading. No new complaints. With blood cell count still elevated at 26.2. Blood pressure this morning 151/81 and consistently high throughout the night. 01/27/25: Overnight, rapid called for confusion. BP 170/100 HR 100-110 Temp 100.2. Abx switched to Zosyn, given methylprednisolone 125 mg, haloperidol, hydralazine, IV labetalol and Mg. WBC still elevated 27.3 today. Soft restraints were in place for wanting to pull out lines last night. Patient seen and examined at bedside. Family at bedside. Patient is more confused and less alert, to answer most questions appropriately. Exam Vital Signs Temp Pulse Resp BP Pulse Ox O2 Del Method O2 Flow Rate 96.9 F 89 24 H 155/114 H 97 Nasal Cannula 2 01/27/25 03:50 01/27/25 03:50 01/27/25 03:50 01/27/25 03:50 01/27/25 03:50 01/27/25 03:50 01/27/25 03:50 Narrative Exam General: AOx1, no acute distress HEENT: NC/AT, mucous membranes moist, bilateral sclera anicteric Cardiovascular: regular rate and rhythm, S1/S2 present, no murmurs appreciated Pulmonary: b/l diffuse wheezes Abdominal: soft, non-tender, non-distended, no rebound/guarding, bowel sounds present Extremities: no peripheral edema Skin: warm and dry, Extensive, improved maculopapular rash all over the body, diffuse petechiae on the lower extremities Neuro CN II-XII grossly intact, no focal deficits Objective Labs 01/27/25 07:20 01/27/25 07:20 Labs: Laboratory Results - last 24 hr 01/25/25 01/27/25 01/27/25 09:23 00:12 07:20 WBC 26.5 H 27.3 H RBC 4.52 4.32 L Hgb 13.5 13.0 L Hct 38.8 L 37.3 L MCV 86 86 MCH 29.9 30.1 MCHC 34.8 34.9 RDW Std Deviation 41.6 42.3 Plt Count 146 137 L Neut % (Auto) 86 H 89 H Lymph % (Auto) 5 L 5 L [place] % (Auto) 3 2 Eos % (Auto) 1 0 Baso % (Auto) 0 0 Neut # (Auto) 22.8 H 24.2 H Lymph # (Auto) 1.4 1.3 [place] # (Auto) 0.8 0.6 Eos # (Auto) 0.2 0.0 Baso # (Auto) 0.1 0.1 Immature Gran # (Auto) 1.20 H 1.10 H Absolute Nucleated RBC 0.02 H 0.02 H Immature Gran % 5 H 4 H Nucleated RBC % 0 0 Sodium 136 Potassium 3.7 Chloride 102 Carbon Dioxide 24.0 Anion Gap 10 BUN 14 Creatinine 0.8 Estim Creat Clear Calc 77.3 eGFR > 60 BUN/Creatinine Ratio 18 Glucose 127 H D Calculated Osmolality 274 L Lactic Acid 1.9 Calcium 8.6 Corrected Calcium 9.0 Total Bilirubin 0.7 AST 69 H ALT 59 H Alkaline Phosphatase 93 Ammonia < 10 L Troponin I 0.042 Total Protein 6.1 Albumin 3.5 Globulin 2.6 Albumin/Globulin Ratio 1.3 Coccidioides IgG Ab Negative ABG Interpretation ABG results: 01/24/25 10:12 ABG pH 7.45 ABG pCO2 35 ABG pO2 193 H ABG HCO3 24 ABG O2 Saturation 100 H ABG Base Excess 1 Quality Measures Quality Measures VTE prophylaxis and none Advance care planning discussed with:: patient Assessment & Plan Assessment Current Active Medications: Generic Name Dose Route Start Last Admin Trade Name Freq PRN Reason Stop Dose Admin Acetaminophen 650 mg 01/24/25 14:43 Acetaminophen 325 Mg Tablet PO 02/23/25 14:42 Q6H PRN pain 1-3 &/or temp>100.1 Dextrose 25 ml 01/26/25 09:16 Dextrose 50%-Water Inj 50 Ml Syringe IV 02/25/25 09:15 Q15MIN PRN BG 50-70 responsive npo pt Dextrose 50 ml 01/26/25 09:16 Dextrose 50%-Water Inj 50 Ml Syringe IV 02/25/25 09:15 Q15MIN PRN BG <50 OR BG <70 & pt unresponsive Diphenhydramine HCl 12.5 mg 01/24/25 17:07 Diphenhydramine Inj 50 Mg/Ml Vial IVP 02/23/25 17:06 Q6HR PRN ITCHING Famotidine 20 mg 01/24/25 17:15 01/26/25 08:24 Famotidine Inj 10 Mg/Ml Vial 2 Ml IVP 02/23/25 17:14 20 mg QDAY JOEL Administration Glucagon 1 mg 01/26/25 09:16 Glucagon Inj 1 Mg Vial IM Q15MIN PRN BG <70, and no IV access Hydralazine HCl 25 mg 01/27/25 01:59 Hydralazine Hcl 25 Mg Tablet PO 02/26/25 01:59 TID PRN SBP > 160 Lactated Ringer's 1,000 mls @ 125 mls/hr 01/24/25 15:04 01/27/25 04:48 Lactated Ringers IV 02/23/25 15:03 125 mls/hr .Q8H JOEL Administration Piperacillin/Tazobactam/Dextrose 3.375 gm in 50 mls @ 100 mls/hr 01/27/25 00:00 01/27/25 06:04 Zosyn IV 02/03/25 00:00 100 mls/hr Q6HR JOEL Administration Insulin Human Lispro 0 unit 01/26/25 11:30 01/26/25 21:16 Insulin Lispro (Admelog) 1 Unit/0.01 Ml Unit SC 02/25/25 11:29 1 unit ACHS JOEL Administration Protocol Labetalol HCl 10 mg 01/27/25 02:00 Labetalol Inj 5 Mg/Ml Vial 20 Ml IVP 02/26/25 01:14 Q2H PRN SBP> 160mmHg 1st line Lactulose 20 gm 01/25/25 18:45 01/26/25 08:24 Lactulose Syrup 20 Gm/30 Ml Udc PO 02/24/25 18:44 20 gm QAM JOEL Administration Protocol Lisinopril 20 mg 01/26/25 09:00 01/26/25 08:24 Lisinopril 20 Mg Tablet PO 02/25/25 08:59 20 mg QDAY JOEL Administration Ondansetron HCl 4 mg 01/24/25 14:43 Ondansetron Inj 2 Mg/Ml Inj 2 Ml IVP 02/23/25 14:42 Q6H PRN NAUSEA OR VOMITING Protocol Prednisone 20 mg 01/26/25 09:00 01/26/25 08:24 Prednisone 20 Mg Tablet PO 02/02/25 07:39 20 mg QDAY JOEL Administration Plan Iftikhar Haines is a 84M pmhx significant for prostate cancer status post prostatectomy undergoing radiation therapy and HTN who is admitted for septic shock, found to have L lung base pneumonia, and has now developed AMS. # Altered Mental Status Rapid called morning of 01/27 for AMS. BP 170/100 HR 100-110 Temp 100.2. Abx switched to Zosyn, given methylprednisolone 125 mg, haloperidol, hydralazine, IV labetalol and Mg. WBC still elevated 27.3. Patient received total 5L of fluids during stay. Ddx includes fluid overload vs HTN emergency vs hospital delirium vs worsening pneumonia vs new infection. Plan: - Zosyn (01/27- - Lasix 40 x1 - Seroquel 12.5 mg BID - Delirium precautions - Frequently orient - Adequate light during the day and off during night # HTN Initial BP very low due to septic shock. Resolved after fluids and antibiotics. Now ranges 150-185 systolic and 85-120 diastolic. Plan: - Lisinopril 20 mg QD - Hydralazine 25 mg TID # Septic shock, resolved # Left lung base pneumonia # Hyperglycemia 2/2 steroids Presented with progressive weakness, confusion and somnolence and decreased urine output. 01/24 CXR significant left lung pneumonia. WBC continues to elevate likely 2/2 high steroids. BCx NGTD, UCx NGTD. Received Zosyn x1 01/24, ceftriaxone and azithromycin (01/25-01/26). 01/27 CXR suspicious PNA at R lung base. Plan: - switch to Zosyn (01/27- - continue prednisone 20 mg PO QD - SSI # Rash, improving Diffuse maculopapular rash. Ddx includes viral xanthem vs vasculitis. Ddx includes IgA vasculitis, [place] Fever rash, uticaria, DRESS syndrome, serum sickness. Coccidioides IgM negative. Plan: - continue famotidine and benadryl q6 prn - steroids as above - CTM - hold all home medications for now - f/u GEN, ANCA, C3/C4, IgA # GABBY, resolved Creatinine 3.6 and eGFR 16 on admission. No hx of kidney disease. Likely 2/2 septic shock and volume depletion. Renal US showed b/l renal cortical thinning and multiple benign L renal cysts. Cr and GFR improved. Plan: - avoid nephrotoxic medications # Normocytic anemia Hgb 13.4 around baseline from 10/2024 of 12.8, MCV 85. - CTM and f/u outpatient # Elevated lactic acid, resolved Lactic acid 3.7 --> 2.1 --> 1.7 # Elevated troponins, resolved Likely type II 2/2 demand ischemia in setting of septic shock. Admission EKG negative for acute ST changes. Troponins 0.119, 0.063, 0.042, 0.035. Hospital management: Disposition: tele for septic shock 2/2 pneumonia Diet: carbohydrate consistent low DVT prophylaxis: SCDs CODE STATUS: Full code Plan of care discussed with attending Dr. Curiel. Attending Provider Attestation/Addendum Patient seen and examined with resident physician Dr. Pulido. Note reviewed, agree with findings and recommendations with changes made. Had a long conversation with , son and granddaughter at bedside. Patient with flulike symptoms going on for the last few days and progressive weakness. Rash for the last 24 hours which has been worsening. Decreased urinary output and multiple falls in the last 2 days. On exam patient seems to have patchy maculopapular rash all over the body with a petechial rash at the lower extremities. Acute renal failure with minimal urinary output. Renal ultrasound showed no hydronephrosis. GABBY probably related to ATN from low blood pressure versus AIN Differential diagnosis-viral exanthem vs vasculitis vs IgA vasculitis Patient has been taking bicalutamide since May 2024. No new drugs. Doubt Peng-Kareem's-as rash is painless with no mucosal involvement. Serology ordered. Agree with IV fluids, IV steroids. Spoke to the regarding his renal function and if no improvement will need kidney biopsy //temporary dialysis. wants to proceed with all aggressive measures. Hold off on all medications. Gave him H1 and H2 sasha. Time spent more than 1 hour regarding plan of care and disease management. 01/25/2025 patient currently seen in telemetry. , son at bedside. Marked improvement in his mentation. Rash stabilized. No fever or chills. White count still elevated at 25,000. Continue with antibiotics, steroids. Physical therapy and home health will be ordered. 01/26/2025 patient currently seen in telemetry. Iris at bedside. Clinically he seems to have marked improvement in mentation. Rash persists although stable. No fever no chills. White count elevated to 26,000. Will switch Solu-Medrol to p.o. prednisone. Continue with antibiotics, physical therapy and home health will be ordered. If clinically stable will plan for discharge in the next 1 to 2 days. 01/27/2025 overnight patient had confusion and rapid response was called. Blood pressure was significantly elevated. Sepsis alert was called in. His white count still elevated 26,000. Antibiotics were switched to Zosyn. Entire family at bedside. He is softly restrained. Will monitor closely. Added Seroquel, Ativan for agitation
[2025-01-27] MEDS: LACTULOSE SYRUP 20 GM/30 ML UDC PO (09:15)
[2025-01-27] MEDS: FAMOTIDINE INJ 10 MG/ML VIAL 2 ML 20 MG IVP (09:15)
[2025-01-27] MEDS: FUROSEMIDE INJ 10 MG/ML 4ML VIAL 40 MG IVP (09:25)
[2025-01-27 09:50] LABS: Alanine Aminotransferase 74 U/L (10-49); Albumin, Serum 3.3 gm/dL (3.4-4.8); Albumin/Globulin Ratio 1.4 (1.2-2.2); Alkaline Phosphatase 92 U/L (46-116); Anion Gap 10 (7-16); Aspartate Amino Transferase 73 U/L (0-34); BUN/Creatinine Ratio 19 Ratio (12-20); Bilirubin,Total 0.9 mg/dL (0.3-1.2); Blood Urea Nitrogen 15 mg/dL (9-23); Calcium 8.4 mg/dL (8.3-10.6); Calcium (Corrected) 9.0 mg/dL (8.5-10.1); Carbon Dioxide 26.2 mMol/L (20.0-31.0); Chloride 102 mMol/L (98-107); Creatinine (Component) 0.8 mg/dL (0.6-1.3); Estimated Creatinine Clearance 77.3 mL/min (>60); Globulin 2.4 gm/dL (2.3-3.5); Glucose 235 mg/dL (74-106); Osmolality,Calculated 284 (275-295); Potassium 3.7 mMol/L (3.4-5.1); Sodium 138 mMol/L (136-145); Total Protein 5.7 gm/dL (5.7-8.2); eGFR > 60 See Note
--- NOTE | 2025-01-27 10:38 | PC.SS ---
SS update: Patient had an overnight rapid due to being confused. Patient placed on soft restraints.
[2025-01-27] MEDS: INSULIN LISPRO (AdmeLOG) 1 UNIT/0.01 ML UNIT SC ×3 (12:17→21:22)
[2025-01-28] VITALS (20 sets, daily range): BP systolic 117–168; BP diastolic 67–99; PULSE 78–103; RESP 16–28; TEMP 36.3–38.8; O2SAT 93–100
[2025-01-28] MEDS: LABETALOL INJ 5 MG/ML VIAL 20 ML 10 MG IVP (00:04)
[2025-01-28] MEDS: PIPER/TAZO 3.375 GM PREMIX 3.375 GM/50 ML BAG IV ×4 (00:05→21:23)
[2025-01-28] MEDS: ALBUTEROL/IPRATROPIUM (Duoneb) RT SOL 3 ML NEBU INH ×6 (00:51→18:41)
[2025-01-28] MEDS: ACETAMINOPHEN 325 MG TABLET 650 MG PO (03:53)
[2025-01-28 06:22] LABS: Basophils # (Auto) 0.1 Thou/mm3 (0.0-0.2); Basophils % (Auto) 0 % (0-2.5); Eosinophils # (Auto) 0.2 Thou/mm3 (0.0-0.5); Eosinophils % (Auto) 1 % (0-10); Hematocrit 37.5 % (41.0-53.0); Hemoglobin 13.1 g/dL (13.5-16.0); Immature Granulocytes Auto 0.82 Thou/mm3 (0.00-0.00); Lymphocytes # (Auto) 1.2 Thou/mm3 (1.0-4.8); Lymphocytes % (Auto) 5 % (10-50); Mean Corpuscular HGB Conc 34.9 g/dl (31.0-37.0); Mean Corpuscular Hemoglobin 29.7 pg (25.0-35.0); Mean Corpuscular Volume 85 fL (80-100); Monocytes # (Auto) 0.7 Thou/mm3 (0.0-0.8); Monocytes % (Auto) 3 % (0-12); Neutrophils # (Auto) 23.4 Thou/mm3 (1.8-7.7); Neutrophils % (Auto) 89 % (37-80); Nucleated Red Blood Cell # 0.06 Thou/mm3 (0.00-0.00); Nucleated Red Blood Cell % 0 /100 WBC (0); Platelet Count 164 Thou/mm3 (140-440); RDW Standard Deviation 42.5 fL (35.1-43.9); Red Blood Count 4.41 Miln/mm3 (4.50-5.90); White Blood Count 26.5 Thou/mm3 (3.8-10.6)
[2025-01-28 06:47] LABS: Alanine Aminotransferase 77 U/L (10-49); Albumin, Serum 3.2 gm/dL (3.4-4.8); Albumin/Globulin Ratio 1.2 (1.2-2.2); Alkaline Phosphatase 85 U/L (46-116); Anion Gap 9 (7-16); Aspartate Amino Transferase 47 U/L (0-34); BUN/Creatinine Ratio 18 Ratio (12-20); Bilirubin,Total 1.2 mg/dL (0.3-1.2); Blood Urea Nitrogen 16 mg/dL (9-23); Calcium 8.5 mg/dL (8.3-10.6); Calcium (Corrected) 9.1 mg/dL (8.5-10.1); Carbon Dioxide 28.8 mMol/L (20.0-31.0); Chloride 102 mMol/L (98-107); Creatinine (Component) 0.9 mg/dL (0.6-1.3); Estimated Creatinine Clearance 67.5 mL/min (>60); Globulin 2.6 gm/dL (2.3-3.5); Glucose 147 mg/dL (74-106); Osmolality,Calculated 283 (275-295); Potassium 3.0 mMol/L (3.4-5.1); Sodium 140 mMol/L (136-145); Total Protein 5.8 gm/dL (5.7-8.2); eGFR > 60 See Note
--- NOTE | 2025-01-28 08:56 | PD.RESPRO ---
Documentation for date of: 01/28/25 Subjective Subjective Interval history: Iftikhar Haines is a 84M pmhx significant for prostate cancer status post prostatectomy years ago with recurrence in in May 2024 undergoing radiation therapy, on Lupron and Casodex , hypertension who presents with several days of weakness and rash all over the body for 1-2 days at bedside and majority of history collected from her. reports that patient began feeling weak and had difficulty walking short distances without feeling fatigued beginning Thursday with gradual worsening, as well as a spreading body rash that started yesterday. also reports that patient has had less urine output the past 2 days and has been slowly getting more confused, sometimes speaking nonsense . Patient has multiple falls yesterday and today. Denies any recent change in medication, travel or diet changes. Denies fever, chest pain, or shortness of breath. 01/25/25: No acute overnight events. Patient was seen and examined at bedside. Family at bedside. Patient is alert and awake this morning, and orientation significantly improved compared to yesterday. Lactic acid decreased 2.1 to 1.7 and WBC still elevated at 25.9. reports giving him home lisinopril this morning, and was educated to not give home medications in hospital. 01/26/25: No acute overnight events. Patient was seen and examined at bedside. also at bedside. Patient is alert and well-appearing. Patient is feeling well today is to go home. Rashes more stable today, not spreading. No new complaints. With blood cell count still elevated at 26.2. Blood pressure this morning 151/81 and consistently high throughout the night. 01/27/25: Overnight, rapid called for confusion. BP 170/100 HR 100-110 Temp 100.2. Abx switched to Zosyn, given methylprednisolone 125 mg, haloperidol, hydralazine, IV labetalol and Mg. WBC still elevated 27.3 today. Soft restraints were in place for wanting to pull out lines last night. Patient seen and examined at bedside. Family at bedside. Patient is more confused and less alert, to answer most questions appropriately. 01/28/25: Overnight, received one Duoneb tx. and daughter, Reina, at bedside. Patient seen and examined at bedside. Patient is sleepy this morning and is still confused, but more alert compared to yesterday. No new complaints. Exam Vital Signs Temp Pulse Resp BP Pulse Ox O2 Del Method O2 Flow Rate 98.9 F 97 24 H 117/67 99 Nasal Cannula 2 01/28/25 04:53 01/28/25 06:46 01/28/25 06:46 01/28/25 05:57 01/28/25 06:46 01/28/25 04:00 01/28/25 04:00 Narrative Exam General: AOx1, no acute distress HEENT: NC/AT, mucous membranes moist, bilateral sclera anicteric Cardiovascular: regular rate and rhythm, S1/S2 present, no murmurs appreciated Pulmonary: no wheezes Abdominal: soft, non-tender, non-distended, no rebound/guarding, bowel sounds present Extremities: no peripheral edema Skin: warm and dry, improved maculopapular rash all over the body, diffuse petechiae on the lower extremities Neuro CN II-XII grossly intact, no focal deficits Objective Labs 01/29/25 05:54 01/29/25 05:54 Labs: Laboratory Results - last 24 hr 01/27/25 01/28/25 07:20 05:34 WBC 26.5 H RBC 4.41 L Hgb 13.1 L Hct 37.5 L MCV 85 MCH 29.7 MCHC 34.9 RDW Std Deviation 42.5 Plt Count 164 Neut % (Auto) 89 H Lymph % (Auto) 5 L Preble % (Auto) 3 Eos % (Auto) 1 Baso % (Auto) 0 Neut # (Auto) 23.4 H Lymph # (Auto) 1.2 Preble # (Auto) 0.7 Eos # (Auto) 0.2 Baso # (Auto) 0.1 Immature Gran # (Auto) 0.82 H Absolute Nucleated RBC 0.06 H Immature Gran % 3 H Nucleated RBC % 0 Sodium 138 140 Potassium 3.7 3.0 L D Chloride 102 102 Carbon Dioxide 26.2 28.8 Anion Gap 10 9 BUN 15 16 Creatinine 0.8 0.9 Estim Creat Clear Calc 77.3 67.5 eGFR > 60 > 60 BUN/Creatinine Ratio 19 18 Glucose 235 H D 147 H D Calculated Osmolality 284 283 Calcium 8.4 8.5 Corrected Calcium 9.0 9.1 Total Bilirubin 0.9 1.2 AST 73 H 47 H ALT 74 H 77 H Alkaline Phosphatase 92 85 Total Protein 5.7 5.8 Albumin 3.3 L 3.2 L Globulin 2.4 2.6 Albumin/Globulin Ratio 1.4 1.2 ABG Interpretation ABG results: 01/24/25 10:12 ABG pH 7.45 ABG pCO2 35 ABG pO2 193 H ABG HCO3 24 ABG O2 Saturation 100 H ABG Base Excess 1 Quality Measures Quality Measures VTE prophylaxis and none Advance care planning discussed with:: patient and spouse Assessment & Plan Assessment Current Active Medications: Generic Name Dose Route Start Last Admin Trade Name Freq PRN Reason Stop Dose Admin Acetaminophen 650 mg 01/24/25 14:43 01/28/25 03:53 Acetaminophen 325 Mg Tablet PO 02/23/25 14:42 650 mg Q6H PRN Administration pain 1-3 &/or temp>100.1 Albuterol/Ipratropium 3 ml 01/28/25 03:00 01/28/25 06:44 Albuterol/Ipratropium (Duoneb) Rt Kat 3 Ml Nebu INH 02/27/25 02:59 3 ml Q4HRRT JOEL Administration Dextrose 25 ml 01/26/25 09:16 Dextrose 50%-Water Inj 50 Ml Syringe IV 02/25/25 09:15 Q15MIN PRN BG 50-70 responsive npo pt Dextrose 50 ml 01/26/25 09:16 Dextrose 50%-Water Inj 50 Ml Syringe IV 02/25/25 09:15 Q15MIN PRN BG <50 OR BG <70 & pt unresponsive Diphenhydramine HCl 12.5 mg 01/24/25 17:07 Diphenhydramine Inj 50 Mg/Ml Vial IVP 02/23/25 17:06 Q6HR PRN ITCHING Famotidine 20 mg 01/24/25 17:15 01/27/25 09:15 Famotidine Inj 10 Mg/Ml Vial 2 Ml IVP 02/23/25 17:14 20 mg QDAY JOEL Administration Glucagon 1 mg 01/26/25 09:16 Glucagon Inj 1 Mg Vial IM Q15MIN PRN BG <70, and no IV access Hydralazine HCl 25 mg 01/27/25 14:00 01/28/25 05:57 Hydralazine Hcl 25 Mg Tablet PO 02/26/25 13:59 25 mg TID JOEL Administration Hydralazine HCl 25 mg 01/27/25 10:24 Hydralazine Hcl 25 Mg Tablet PO 02/26/25 01:59 TID PRN SBP > 160 Piperacillin/Tazobactam/Dextrose 3.375 gm in 50 mls @ 12.5 mls/hr 01/28/25 06:00 01/28/25 05:55 Zosyn IV 02/04/25 05:59 12.5 mls/hr Q8HR JOEL Administration Protocol Potassium Phosphate 22.5 mmol/ 507.5 mls @ 82.778 mls/hr 01/28/25 08:08 Sodium Chloride IV 01/28/25 14:15 X1 ONE Insulin Human Lispro 0 unit 01/26/25 11:30 01/28/25 07:52 Insulin Lispro (Admelog) 1 Unit/0.01 Ml Unit SC 02/25/25 11:29 Not Given ACHS JOEL Protocol Labetalol HCl 10 mg 01/27/25 02:00 01/28/25 00:04 Labetalol Inj 5 Mg/Ml Vial 20 Ml IVP 02/26/25 01:14 10 mg Q2H PRN Administration SBP> 160mmHg 1st line Lactulose 20 gm 01/25/25 18:45 01/27/25 09:15 Lactulose Syrup 20 Gm/30 Ml Udc PO 02/24/25 18:44 20 gm QAM JOEL Administration Protocol Lisinopril 20 mg 01/26/25 09:00 01/27/25 09:16 Lisinopril 20 Mg Tablet PO 02/25/25 08:59 20 mg QDAY JOEL Administration Lorazepam 0.5 mg 01/27/25 08:59 01/27/25 13:46 Lorazepam 2 Mg/Ml Vial IVP 02/01/25 08:58 0.5 mg Q6H PRN Administration ANXIETY Ondansetron HCl 4 mg 01/24/25 14:43 Ondansetron Inj 2 Mg/Ml Inj 2 Ml IVP 02/23/25 14:42 Q6H PRN NAUSEA OR VOMITING Protocol Prednisone 20 mg 01/26/25 09:00 01/27/25 09:18 Prednisone 20 Mg Tablet PO 02/02/25 07:39 20 mg QDAY JOEL Administration Quetiapine Fumarate 12.5 mg 01/27/25 09:00 01/27/25 21:19 Quetiapine Fumarate 25 Mg Tablet PO 02/26/25 08:59 12.5 mg BID JOEL Administration Plan Iftikhar Haines is a 84M pmhx significant for prostate cancer status post prostatectomy undergoing radiation therapy and HTN who is admitted for septic shock, found to have L lung base pneumonia, and has now developed AMS. # Altered Mental Status Rapid called morning of 01/27 for AMS. BP 170/100 HR 100-110 Temp 100.2. Abx switched to Zosyn, given methylprednisolone 125 mg, haloperidol, hydralazine, IV labetalol and Mg. WBC 27.3-->26.5. Patient received total 5L of fluids during stay. s/p Lasix 40x1. Patient still altered with continued abx. Ddx includes fluid overload vs HTN emergency vs hospital delirium vs worsening pneumonia vs new infection. Plan: - Zosyn (01/27- - Seroquel 12.5 mg prn and Lorazepam 0.5 q6 prn - Delirium precautions (frequently orient with adequate light during the day and off during night) - Consult neurology, recs appreciated - F/u repeat Ucx and Bcx - Start 1/2 NS with K 90 mL/hr # HTN Initial BP very low due to septic shock. Resolved after fluids and antibiotics. Ranged 150-185 systolic and 85-120 diastolic, but now controlled on regimen below. Plan: - Lisinopril 20 mg QD - Hydralazine 25 mg TID # Septic shock, resolved # Left lung base pneumonia, improving # Hyperglycemia 2/2 steroids, improving Presented with progressive weakness, confusion and somnolence and decreased urine output. 01/24 CXR significant left lung pneumonia. WBC continues to elevate likely 2/2 high steroids. BCx NGTD, UCx NGTD. Received Zosyn x1 01/24, ceftriaxone and azithromycin (01/25-01/26). 01/27 CXR suspicious PNA at R lung base. Plan: - Zosyn (01/27- - continue prednisone 20 mg PO QD - SSI # Rash, improving Diffuse maculopapular rash. Ddx includes viral xanthem vs vasculitis. Ddx includes IgA vasculitis, Valley Fever rash, uticaria, DRESS syndrome, serum sickness. Coccidioides IgM negative. Plan: - Famotidine and benadryl q6 prn - steroids as above - CTM - hold all home medications for now - f/u GEN, ANCA, C3/C4, IgA # GABBY, resolved Creatinine 3.6 and eGFR 16 on admission. No hx of kidney disease. Likely 2/2 septic shock and volume depletion. Renal US showed b/l renal cortical thinning and multiple benign L renal cysts. Cr and GFR improved. Plan: - avoid nephrotoxic medications # Normocytic anemia Hgb 13.4 around baseline from 10/2024 of 12.8, MCV 85. - CTM and f/u outpatient # Elevated lactic acid, resolved Lactic acid 3.7 --> 2.1 --> 1.7 # Elevated troponins, resolved Likely type II 2/2 demand ischemia in setting of septic shock. Admission EKG negative for acute ST changes. Troponins 0.119, 0.063, 0.042, 0.035. Hospital management: Disposition: tele for septic shock 2/2 pneumonia Diet: carbohydrate consistent low DVT prophylaxis: SCDs CODE STATUS: Full code Plan of care discussed with attending Dr. Curiel. Traci Pulido DO, PGY-1 Attending Provider Attestation/Addendum Patient seen and examined with resident physician Dr. Pulido. Note reviewed, agree with findings and recommendations with changes made. Had a long conversation with , son and granddaughter at bedside. Patient with flulike symptoms going on for the last few days and progressive weakness. Rash for the last 24 hours which has been worsening. Decreased urinary output and multiple falls in the last 2 days. On exam patient seems to have patchy maculopapular rash all over the body with a petechial rash at the lower extremities. Acute renal failure with minimal urinary output. Renal ultrasound showed no hydronephrosis. GABBY probably related to ATN from low blood pressure versus AIN Differential diagnosis-viral exanthem vs vasculitis vs IgA vasculitis Patient has been taking bicalutamide since May 2024. No new drugs. Doubt Peng-Kareem's-as rash is painless with no mucosal involvement. Serology ordered. Agree with IV fluids, IV steroids. Spoke to the regarding his renal function and if no improvement will need kidney biopsy //temporary dialysis. wants to proceed with all aggressive measures. Hold off on all medications. Gave him H1 and H2 sasha. Time spent more than 1 hour regarding plan of care and disease management. 01/25/2025 patient currently seen in telemetry. , son at bedside. Marked improvement in his mentation. Rash stabilized. No fever or chills. White count still elevated at 25,000. Continue with antibiotics, steroids. Physical therapy and home health will be ordered. 01/26/2025 patient currently seen in telemetry. Iris at bedside. Clinically he seems to have marked improvement in mentation. Rash persists although stable. No fever no chills. White count elevated to 26,000. Will switch Solu-Medrol to p.o. prednisone. Continue with antibiotics, physical therapy and home health will be ordered. If clinically stable will plan for discharge in the next 1 to 2 days. 01/27/2025 overnight patient had confusion and rapid response was called. Blood pressure was significantly elevated. Sepsis alert was called in. His white count still elevated 26,000. Antibiotics were switched to Zosyn. Entire family at bedside. He is softly restrained. Will monitor closely. Added Seroquel, Ativan for agitation 01/28/2025 patient currently seen in telemetry. Family at bedside. Blood pressure seems to be elevated. Adjusted medications. White count still elevated. He seems to be softly restrained due to his confusion. Added Seroquel and Ativan. On antibiotics. Neurology was consulted.
[2025-01-28] MEDS: POTASSIUM PHOS 22.5 MMOL in SODIUM CHLORIDE 0.9% 500 ML 500 ML 82.778 MMOL IV (09:17)
[2025-01-28] MEDS: FAMOTIDINE INJ 10 MG/ML VIAL 2 ML 20 MG IVP (09:18)
[2025-01-28] MEDS: LACTULOSE SYRUP 20 GM/30 ML UDC PO (09:18)
[2025-01-28] MEDS: KCL 20 mEq/L in 1/2NS 20 MEQ/1,000 ML BAG 90 MEQ IV (11:36)
[2025-01-28] MEDS: INSULIN LISPRO (AdmeLOG) 1 UNIT/0.01 ML UNIT SC ×3 (12:28→21:17)
--- NOTE | 2025-01-28 13:55 | PC.SS ---
ASW spoke with Dr. Curiel and reported she spoke with the pt and family and it was determined that the pt will dc to [facility] when ready for dc
--- NOTE | 2025-01-28 23:14 | PD.NEUROCONS ---
History of Present Illness Data of Consult Requesting Physician: Laquita Curiel MD Primary Care Provider: Laquita Curiel MD Consult Narrative cc:: cc: Laquita Curiel MD Meds Home Medications and Allergies Home Medications ?Medication ?Instructions ?Recorded ?Confirmed ?Type doxazosin 2 mg tablet 2 mg PO QDAY 04/14/18 01/24/25 History gabapentin 300 mg capsule 300 mg PO BID 04/14/18 01/24/25 History atorvastatin 10 mg tablet 10 mg PO QDAY 02/21/22 01/24/25 History lisinopril 20 1 tab PO DAILY 02/21/22 01/24/25 History mg-hydrochlorothiazide 12.5 mg tablet ofloxacin 0.3 % ear drops 10 drp otic (ear) BID 02/21/22 01/24/25 History bicalutamide 50 mg tablet 50 mg PO QDAY 01/24/25 01/24/25 History oxybutynin chloride 5 mg tablet 5 mg PO QDAY 01/24/25 01/24/25 History Allergies Allergy/AdvReac Type Severity Reaction Status Date / Time No Known Allergies Allergy Verified 01/24/25 09:39 Exam - Neurology Vital Signs Temp Pulse Resp BP Pulse Ox O2 Del Method O2 Flow Rate 97.6 F 89 19 160/92 H 98 Nasal Cannula 2 01/28/25 20:00 01/28/25 21:16 01/28/25 20:00 01/28/25 21:16 01/28/25 20:00 01/28/25 20:00 01/28/25 20:00 Results Labs 01/28/25 05:34 01/28/25 05:34 Labs: Short CBC 01/28/25 Range/Units 05:34 WBC 26.5 H (3.8-10.6) Thou/mm3 Hgb 13.1 L (13.5-16.0) g/dL Hct 37.5 L (41.0-53.0) % Plt Count 164 (140-440) Thou/mm3 BMP 01/28/25 05:34 Sodium 140 Potassium 3.0 L D Chloride 102 Carbon Dioxide 28.8 BUN 16 Creatinine 0.9 Glucose 147 H D Calcium 8.5 Liver Function 01/28/25 Range/Units 05:34 Total Bilirubin 1.2 (0.3-1.2) mg/dL AST 47 H (0-34) U/L ALT 77 H (10-49) U/L Alkaline Phosphatase 85 (46-116) U/L Albumin 3.2 L (3.4-4.8) gm/dL ABG Interpretation ABG results: 01/24/25 10:12 ABG pH 7.45 ABG pCO2 35 ABG pO2 193 H ABG HCO3 24 ABG O2 Saturation 100 H ABG Base Excess 1
[2025-01-29] VITALS (12 sets, daily range): BP systolic 119–160; BP diastolic 67–93; PULSE 80–99; RESP 15–28; TEMP 36.1–36.9; O2SAT 94–99
[2025-01-29] MEDS: ALBUTEROL/IPRATROPIUM (Duoneb) RT SOL 3 ML NEBU INH ×2 (03:19→07:03)
[2025-01-29] MEDS: ACETAMINOPHEN 325 MG TABLET 650 MG PO (04:07)
[2025-01-29] MEDS: PIPER/TAZO 3.375 GM PREMIX 3.375 GM/50 ML BAG IV ×3 (05:39→21:25)
[2025-01-29 06:38] LABS: Basophils # (Auto) 0.1 Thou/mm3 (0.0-0.2); Basophils % (Auto) 0 % (0-2.5); Lymphocytes % (Auto) 5 % (10-50); Platelet Count 148 Thou/mm3 (140-440)
[2025-01-29] MEDS: LORazepam 2 MG/ML VIAL 0.5 MG IVP (06:44)
[2025-01-29 06:45] LABS: Eosinophils # (Auto) 0.6 Thou/mm3 (0.0-0.5); Eosinophils % (Auto) 3 % (0-10); Hematocrit 33.3 % (41.0-53.0); Hemoglobin 11.9 g/dL (13.5-16.0); Immature Granulocytes Auto 0.89 Thou/mm3 (0.00-0.00); Lymphocytes # (Auto) 0.9 Thou/mm3 (1.0-4.8); Mean Corpuscular HGB Conc 35.7 g/dl (31.0-37.0); Mean Corpuscular Hemoglobin 30.1 pg (25.0-35.0); Mean Corpuscular Volume 84 fL (80-100); Monocytes # (Auto) 0.4 Thou/mm3 (0.0-0.8); Monocytes % (Auto) 2 % (0-12); Neutrophils # (Auto) 15.9 Thou/mm3 (1.8-7.7); Neutrophils % (Auto) 85 % (37-80); Nucleated Red Blood Cell # 0.00 Thou/mm3 (0.00-0.00); Nucleated Red Blood Cell % 0 /100 WBC (0); RDW Standard Deviation 43.2 fL (35.1-43.9); Red Blood Count 3.96 Miln/mm3 (4.50-5.90); White Blood Count 18.7 Thou/mm3 (3.8-10.6)
[2025-01-29 06:59] LABS: Alanine Aminotransferase 46 U/L (10-49); Albumin, Serum 2.9 gm/dL (3.4-4.8); Albumin/Globulin Ratio 1.2 (1.2-2.2); Alkaline Phosphatase 74 U/L (46-116); Anion Gap 10 (7-16); Aspartate Amino Transferase 17 U/L (0-34); BUN/Creatinine Ratio 18 Ratio (12-20); Bilirubin,Total 1.0 mg/dL (0.3-1.2); Blood Urea Nitrogen 14 mg/dL (9-23); Calcium 8.0 mg/dL (8.3-10.6); Calcium (Corrected) 8.9 mg/dL (8.5-10.1); Carbon Dioxide 26.9 mMol/L (20.0-31.0); Chloride 103 mMol/L (98-107); Creatinine (Component) 0.8 mg/dL (0.6-1.3); Estimated Creatinine Clearance 75.9 mL/min (>60); Globulin 2.4 gm/dL (2.3-3.5); Glucose 136 mg/dL (74-106); Osmolality,Calculated 281 (275-295); Potassium 3.2 mMol/L (3.4-5.1); Sodium 140 mMol/L (136-145); Total Protein 5.3 gm/dL (5.7-8.2); eGFR > 60 See Note
[2025-01-29] MEDS: LACTULOSE SYRUP 20 GM/30 ML UDC PO (09:48)
[2025-01-29] MEDS: FAMOTIDINE INJ 10 MG/ML VIAL 2 ML 20 MG IVP (09:49)
[2025-01-29] MEDS: INSULIN LISPRO (AdmeLOG) 1 UNIT/0.01 ML UNIT SC ×4 (10:08→21:24)
--- NOTE | 2025-01-29 10:43 | ESPR_ITS ---
Documentation for date of: 01/29/25 Subjective Subjective Interval history: Iftikhar Haines is a 84M pmhx significant for prostate cancer status post prostatectomy years ago with recurrence in in May 2024 undergoing radiation therapy, on Lupron and Casodex , hypertension who presents with several days of weakness and rash all over the body for 1-2 days at bedside and majority of history collected from her. reports that patient began feeling weak and had difficulty walking short distances without feeling fatigued beginning Thursday with gradual worsening, as well as a spreading body rash that started yesterday. also reports that patient has had less urine output the past 2 days and has been slowly getting more confused, sometimes speaking nonsense . Patient has multiple falls yesterday and today. Denies any recent change in medication, travel or diet changes. Denies fever, chest pain, or shortness of breath. 01/25/25: No acute overnight events. Patient was seen and examined at bedside. Family at bedside. Patient is alert and awake this morning, and orientation significantly improved compared to yesterday. Lactic acid decreased 2.1 to 1.7 and WBC still elevated at 25.9. reports giving him home lisinopril this morning, and was educated to not give home medications in hospital. 01/26/25: No acute overnight events. Patient was seen and examined at bedside. also at bedside. Patient is alert and well-appearing. Patient is feeling well today is to go home. Rashes more stable today, not spreading. No new complaints. With blood cell count still elevated at 26.2. Blood pressure this morning 151/81 and consistently high throughout the night. 01/27/25: Overnight, rapid called for confusion. BP 170/100 HR 100-110 Temp 100.2. Abx switched to Zosyn, given methylprednisolone 125 mg, haloperidol, hydralazine, IV labetalol and Mg. WBC still elevated 27.3 today. Soft restraints were in place for wanting to pull out lines last night. Patient seen and examined at bedside. Family at bedside. Patient is more confused and less alert, to answer most questions appropriately. 01/28/25: Overnight, received one Duoneb tx. and daughter, Reina, at bedside. Patient seen and examined at bedside. Patient is sleepy this morning and is still confused, but more alert compared to yesterday. No new complaints. 01/29/25: No acute overnight events. and daughter, Reina and son at bedside. Patient seen and examined at bedside. Patient is in restraints and has some frustration with being on restraints and wants to go home. Patient's orientation continues to wax and wane throughout the day. Patient currently was more alert and oriented when examined today. No new complaints. Exam Vital Signs Temp Pulse Resp BP Pulse Ox O2 Del Method O2 Flow Rate 98.0 F 98 28 H 119/72 94 L Room Air 2 01/29/25 08:00 01/29/25 09:48 01/29/25 08:00 01/29/25 09:48 01/29/25 08:00 01/29/25 08:00 01/28/25 20:00 Narrative Exam General: AOx2, no acute distress, restraints present HEENT: NC/AT, mucous membranes moist, bilateral sclera anicteric Cardiovascular: regular rate and rhythm, S1/S2 present, no murmurs appreciated Pulmonary: no wheezes Abdominal: soft, non-tender, non-distended, no rebound/guarding, bowel sounds present Extremities: no peripheral edema Skin: warm and dry, improved maculopapular rash all over the body, diffuse petechiae on the lower extremities Neuro CN II-XII grossly intact, no focal deficits Objective Labs 01/29/25 05:54 01/29/25 05:54 Labs: Laboratory Results - last 24 hr 01/29/25 05:54 WBC 18.7 H D RBC 3.96 L Hgb 11.9 L Hct 33.3 L MCV 84 MCH 30.1 MCHC 35.7 RDW Std Deviation 43.2 Plt Count 148 Neut % (Auto) 85 H Lymph % (Auto) 5 L [place] % (Auto) 2 Eos % (Auto) 3 Baso % (Auto) 0 Neut # (Auto) 15.9 H Lymph # (Auto) 0.9 L [place] # (Auto) 0.4 Eos # (Auto) 0.6 H Baso # (Auto) 0.1 Immature Gran # (Auto) 0.89 H Absolute Nucleated RBC 0.00 Immature Gran % 5 H Nucleated RBC % 0 Sodium 140 Potassium 3.2 L Chloride 103 Carbon Dioxide 26.9 Anion Gap 10 BUN 14 Creatinine 0.8 Estim Creat Clear Calc 75.9 eGFR > 60 BUN/Creatinine Ratio 18 Glucose 136 H Calculated Osmolality 281 Calcium 8.0 L Corrected Calcium 8.9 Total Bilirubin 1.0 AST 17 ALT 46 Alkaline Phosphatase 74 Total Protein 5.3 L Albumin 2.9 L Globulin 2.4 Albumin/Globulin Ratio 1.2 ABG Interpretation ABG results: 01/24/25 10:12 ABG pH 7.45 ABG pCO2 35 ABG pO2 193 H ABG HCO3 24 ABG O2 Saturation 100 H ABG Base Excess 1 Quality Measures Quality Measures VTE prophylaxis Advance care planning discussed with:: patient and spouse Assessment & Plan Assessment Current Active Medications: Generic Name Dose Route Start Last Admin Trade Name Freq PRN Reason Stop Dose Admin Acetaminophen 650 mg 01/24/25 14:43 01/29/25 04:07 Acetaminophen 325 Mg Tablet PO 02/23/25 14:42 650 mg Q6H PRN Administration pain 1-3 &/or temp>100.1 Albuterol/Ipratropium 3 ml 01/29/25 08:31 Albuterol/Ipratropium (Duoneb) Rt Kat 3 Ml Nebu INH 02/27/25 02:59 Q4HRRT PRN SHORTNESS OF BREATH OR WHEEZE Dextrose 25 ml 01/26/25 09:16 Dextrose 50%-Water Inj 50 Ml Syringe IV 02/25/25 09:15 Q15MIN PRN BG 50-70 responsive npo pt Dextrose 50 ml 01/26/25 09:16 Dextrose 50%-Water Inj 50 Ml Syringe IV 02/25/25 09:15 Q15MIN PRN BG <50 OR BG <70 & pt unresponsive Diphenhydramine HCl 12.5 mg 01/24/25 17:07 Diphenhydramine Inj 50 Mg/Ml Vial IVP 02/23/25 17:06 Q6HR PRN ITCHING Famotidine 20 mg 01/24/25 17:15 01/29/25 09:49 Famotidine Inj 10 Mg/Ml Vial 2 Ml IVP 02/23/25 17:14 20 mg QDAY JOEL Administration Glucagon 1 mg 01/26/25 09:16 Glucagon Inj 1 Mg Vial IM Q15MIN PRN BG <70, and no IV access Hydralazine HCl 25 mg 01/27/25 14:00 01/29/25 05:39 Hydralazine Hcl 25 Mg Tablet PO 02/26/25 13:59 25 mg TID JOEL Administration Hydralazine HCl 25 mg 01/27/25 10:24 Hydralazine Hcl 25 Mg Tablet PO 02/26/25 01:59 TID PRN SBP > 160 Piperacillin/Tazobactam/Dextrose 3.375 gm in 50 mls @ 12.5 mls/hr 01/28/25 06:00 01/29/25 05:39 Zosyn IV 02/04/25 05:59 12.5 mls/hr Q8HR JOEL Administration Protocol Potassium Chloride 10 meq in 100 mls @ 100 mls/hr 01/29/25 10:41 Kcl Ivpb IV 01/29/25 11:40 Q1HR ONE Insulin Human Lispro 0 unit 01/26/25 11:30 01/29/25 10:08 Insulin Lispro (Admelog) 1 Unit/0.01 Ml Unit SC 02/25/25 11:29 1 unit ACHS JOEL Administration Protocol Labetalol HCl 10 mg 01/27/25 02:00 01/28/25 00:04 Labetalol Inj 5 Mg/Ml Vial 20 Ml IVP 02/26/25 01:14 10 mg Q2H PRN Administration SBP> 160mmHg 1st line Lactulose 20 gm 01/25/25 18:45 01/29/25 09:48 Lactulose Syrup 20 Gm/30 Ml Udc PO 02/24/25 18:44 20 gm QAM JOEL Administration Protocol Lisinopril 20 mg 01/26/25 09:00 01/29/25 09:48 Lisinopril 20 Mg Tablet PO 02/25/25 08:59 20 mg QDAY JOEL Administration Lorazepam 0.5 mg 01/27/25 08:59 01/29/25 06:44 Lorazepam 2 Mg/Ml Vial IVP 02/01/25 08:58 0.5 mg Q6H PRN Administration ANXIETY Ondansetron HCl 4 mg 01/24/25 14:43 Ondansetron Inj 2 Mg/Ml Inj 2 Ml IVP 02/23/25 14:42 Q6H PRN NAUSEA OR VOMITING Protocol Prednisone 20 mg 01/26/25 09:00 01/29/25 09:49 Prednisone 20 Mg Tablet PO 02/02/25 07:39 20 mg QDAY JOEL Administration Quetiapine Fumarate 12.5 mg 01/28/25 09:33 Quetiapine Fumarate 25 Mg Tablet PO 02/27/25 09:32 QDAY PRN AGITATION Plan Iftikhar Haines is a 84M pmhx significant for prostate cancer status post prostatectomy undergoing radiation therapy and HTN who is admitted for septic shock, found to have L lung base pneumonia, and has now developed AMS. # Altered Mental Status Rapid called morning of 01/27 for AMS. BP 170/100 HR 100-110 Temp 100.2. Abx switched to Zosyn, given methylprednisolone 125 mg, haloperidol, hydralazine, IV labetalol and Mg. WBC 27.3-->26.5. Patient received total 5L of fluids during stay. s/p Lasix 40x1. Patient still altered with continued abx. Ddx includes fluid overload vs HTN emergency vs hospital delirium vs worsening pneumonia vs new infection. Plan: - Zosyn (01/27- - Lorazepam 0.5 q6 prn - Delirium precautions (frequently orient with adequate light during the day and off during night) - Consult neurology, recs appreciated - F/u repeat Ucx and Bcx # HTN Initial BP very low due to septic shock. Resolved after fluids and antibiotics. Ranged 150-185 systolic and 85-120 diastolic, but now controlled on regimen below. Plan: - Lisinopril 20 mg QD - Hydralazine 25 mg TID # Septic shock, resolved # Left lung base pneumonia, improving # Hyperglycemia 2/2 steroids, improving Presented with progressive weakness, confusion and somnolence and decreased urine output. 01/24 CXR significant left lung pneumonia. WBC continues to elevate likely 2/2 high steroids. BCx NGTD, UCx NGTD. Received Zosyn x1 01/24, ceftriaxone and azithromycin (01/25-01/26). 01/27 CXR suspicious PNA at R lung base. Plan: - Zosyn (01/27- - continue prednisone 20 mg PO QD - SSI # Rash, improving Diffuse maculopapular rash. Ddx includes viral xanthem vs vasculitis. Ddx includes IgA vasculitis, Valley Fever rash, uticaria, DRESS syndrome, serum sickness. Coccidioides IgM negative. Plan: - Famotidine and benadryl q6 prn - steroids as above - CTM - hold all home medications for now - f/u GEN, ANCA, C3/C4, IgA # GABBY, resolved Creatinine 3.6 and eGFR 16 on admission. No hx of kidney disease. Likely 2/2 septic shock and volume depletion. Renal US showed b/l renal cortical thinning and multiple benign L renal cysts. Cr and GFR improved. Plan: - avoid nephrotoxic medications # Normocytic anemia Hgb 13.4 around baseline from 10/2024 of 12.8, MCV 85. - CTM and f/u outpatient # Elevated lactic acid, resolved Lactic acid 3.7 --> 2.1 --> 1.7 (01/24) # Elevated troponins, resolved Likely type II 2/2 demand ischemia in setting of septic shock. Admission EKG negative for acute ST changes. Troponins 0.119, 0.063, 0.042, 0.035. Hospital management: Disposition: tele for septic shock 2/2 pneumonia Diet: carbohydrate consistent low DVT prophylaxis: SCDs CODE STATUS: Full code Plan of care discussed with attending Dr. Curiel. Ladarius Serna MD PGY-1 Attending Provider Attestation/Addendum Patient seen and examined with resident physician Dr. Serna. Note reviewed, agree with findings and recommendations with changes made. Had a long conversation with , son and granddaughter at bedside. Patient with flulike symptoms going on for the last few days and progressive weakness. Rash for the last 24 hours which has been worsening. Decreased urinary output and multiple falls in the last 2 days. On exam patient seems to have patchy maculopapular rash all over the body with a petechial rash at the lower extremities. Acute renal failure with minimal urinary output. Renal ultrasound showed no hydronephrosis. GABBY probably related to ATN from low blood pressure versus AIN Differential diagnosis-viral exanthem vs vasculitis vs IgA vasculitis Patient has been taking bicalutamide since May 2024. No new drugs. Doubt Peng-Kareem's-as rash is painless with no mucosal involvement. Serology ordered. Agree with IV fluids, IV steroids. Spoke to the regarding his renal function and if no improvement will need kidney biopsy //temporary dialysis. wants to proceed with all aggressive measures. Hold off on all medications. Gave him H1 and H2 sasha. Time spent more than 1 hour regarding plan of care and disease management. 01/25/2025 patient currently seen in telemetry. , son at bedside. Marked improvement in his mentation. Rash stabilized. No fever or chills. White count still elevated at 25,000. Continue with antibiotics, steroids. Physical therapy and home health will be ordered. 01/26/2025 patient currently seen in telemetry. Iris at bedside. Clinically he seems to have marked improvement in mentation. Rash persists although stable. No fever no chills. White count elevated to 26,000. Will switch Solu-Medrol to p.o. prednisone. Continue with antibiotics, physical therapy and home health will be ordered. If clinically stable will plan for discharge in the next 1 to 2 days. 01/27/2025 overnight patient had confusion and rapid response was called. Blood pressure was significantly elevated. Sepsis alert was called in. His white count still elevated 26,000. Antibiotics were switched to Zosyn. Entire family at bedside. He is softly restrained. Will monitor closely. Added Matilda Pereira for agitation 01/29/2025 patient currently seen in telemetry. He has been in soft restraints as he was upset and belligerent with his and one of the [employer]'s. Urology on the case. CT brain negative. Denies any chest pain. Did have some cough. On antibiotics and breathing treatments. Will monitor closely. White count improved to 18,000. Will benefit from rehab placement. Family at bedside.
[2025-01-29] MEDS: POTASSIUM CHL 10 mEq IVPB 10 MEQ/100 ML BAG 100 MEQ IV (11:16)
--- NOTE | 2025-01-29 19:26 | ESPR_ITS ---
Documentation for date of: 01/29/25 Subjective Subjective Interval history: Patient seen at bedside with family, denies new symptoms. Patient reports being tired but denies headache, nausea, vomiting, abdominal pain. Per patient's family, patient was able to converse in the morning though now he is more tired and falling asleep during conversation. Family reports that patient has not had any word finding difficulties or confusion today. Exam Vital Signs Temp Pulse Resp BP Pulse Ox O2 Del Method O2 Flow Rate 97.8 F 80 15 137/70 H 97 Room Air 2 01/29/25 16:01/29/25 16:01/29/25 16:00 01/29/25 16:00 01/29/25 16:00 01/29/25 16:01/28/25 20:00 Narrative Exam General: No acute distress, well nourished Eye: PERRL, EOMI, normal conjunctiva, no scleral icterus HENT: Normocephalic, atraumatic, hearing intact to conversation at normal volume, moist oral mucosa Neck: Supple, non-tender, no JVD, no lymphadenopathy Lungs: Non-labored respirations, symmetric chest rise Heart: Peripheral pulses intact bilaterally Abdomen: Soft, non-tender, non-distended. LUE swollen but not painful, erythematous, or warmer than RUE Musculoskeletal: Normal range of motion and strength Skin: Skin is warm, dry, no rashes or lesions. Psychiatric: Cooperative, appropriate mood and affect Neurologic: Mental status: Orientation: Oriented to person, place, situation, and time. Patient occasionally falls asleep during exam but arouses to voice Communication: Patient is cooperative and can follow simple instructions Language: Speech fluent, normal rate and volume, comprehension intact Cranial nerves: CN II: Visual torres intact CN III: Pupils equal, round, and reactive to light CN III, IV, : No gaze deviation, no nystagmus Horizontal pursuit: intact Vertical pursuit: intact Ptosis: none CN V: Facial sensation to light touch intact bilaterally at the forehead, cheeks, and jaw line CN VII: Face symmetric, no facial droop appreciated CN VIII: Able to hear and respond to conversation at normal volume, intact to finger rub CN IX, X: Palate elevation symmetric, uvula midline CN XI: Head turn and shoulder shrug strong, symmetric bilaterally CN XII: Normal tongue protrusion without deviation, no fasciculations Motor: Normal bulk and tone No atrophy No abnormal movements or fasciculations Muscle strength: Shoulder abduction: R 5/5 L 5/5 Elbow flexion: R 5/5 L 5/5 Elbow extension: R 5/5 L 5/5 Hip flexion: R 5/5 L 5/5 Hip extension: R 5/5 L 5/5 Knee flexion: R 5/5 L 5/5 Knee extension: R 5/5 L 5/5 Sensory: RUE: Light touch intact LUE: Light touch intact RLE: Light touch intact LLE: Light touch intact Reflexes: Biceps (C5-6): R 2+ L 2+ Brachioradialis (C5-6): R 2+ L 2+ Triceps (C7-8): R 2+ L 2+ Patellae (L3-4): R 2+ L 2+ Achilles (S1-2):R 2+ L 2+ Cerebellum: RUE: No dysmetria (finger to nose) LUE: No dysmetria (finger to nose) Romberg: deferred Gait: deferred Objective Labs 01/30/25 05:41 01/30/25 05:41 Labs: Laboratory Results - last 24 hr 01/29/25 05:54 WBC 18.7 H D RBC 3.96 L Hgb 11.9 L Hct 33.3 L MCV 84 MCH 30.1 MCHC 35.7 RDW Std Deviation 43.2 Plt Count 148 Neut % (Auto) 85 H Lymph % (Auto) 5 L [place] % (Auto) 2 Eos % (Auto) 3 Baso % (Auto) 0 Neut # (Auto) 15.9 H Lymph # (Auto) 0.9 L [place] # (Auto) 0.4 Eos # (Auto) 0.6 H Baso # (Auto) 0.1 Immature Gran # (Auto) 0.89 H Absolute Nucleated RBC 0.00 Immature Gran % 5 H Nucleated RBC % 0 Sodium 140 Potassium 3.2 L Chloride 103 Carbon Dioxide 26.9 Anion Gap 10 BUN 14 Creatinine 0.8 Estim Creat Clear Calc 75.9 eGFR > 60 BUN/Creatinine Ratio 18 Glucose 136 H Calculated Osmolality 281 Calcium 8.0 L Corrected Calcium 8.9 Total Bilirubin 1.0 AST 17 ALT 46 Alkaline Phosphatase 74 Total Protein 5.3 L Albumin 2.9 L Globulin 2.4 Albumin/Globulin Ratio 1.2 ABG Interpretation ABG results: 01/24/25 10:12 ABG pH 7.45 ABG pCO2 35 ABG pO2 193 H ABG HCO3 24 ABG O2 Saturation 100 H ABG Base Excess 1 Quality Measures Quality Measures VTE prophylaxis Advance care planning discussed with:: patient, spouse and other Assessment & Plan Assessment Current Active Medications: Generic Name Dose Route Start Last Admin Trade Name Freq PRN Reason Stop Dose Admin Acetaminophen 650 mg 01/24/25 14:43 01/29/25 04:07 Acetaminophen 325 Mg Tablet PO 02/23/25 14:42 650 mg Q6H PRN Administration pain 1-3 &/or temp>100.1 Albuterol/Ipratropium 3 ml 01/29/25 08:31 Albuterol/Ipratropium (Duoneb) Rt Kat 3 Ml Nebu INH 02/27/25 02:59 Q4HRRT PRN SHORTNESS OF BREATH OR WHEEZE Dextrose 25 ml 01/26/25 09:16 Dextrose 50%-Water Inj 50 Ml Syringe IV 02/25/25 09:15 Q15MIN PRN BG 50-70 responsive npo pt Dextrose 50 ml 01/26/25 09:16 Dextrose 50%-Water Inj 50 Ml Syringe IV 02/25/25 09:15 Q15MIN PRN BG <50 OR BG <70 & pt unresponsive Diphenhydramine HCl 12.5 mg 01/24/25 17:07 Diphenhydramine Inj 50 Mg/Ml Vial IVP 02/23/25 17:06 Q6HR PRN ITCHING Famotidine 20 mg 01/24/25 17:15 01/29/25 09:49 Famotidine Inj 10 Mg/Ml Vial 2 Ml IVP 02/23/25 17:14 20 mg QDAY JOEL Administration Glucagon 1 mg 01/26/25 09:16 Glucagon Inj 1 Mg Vial IM Q15MIN PRN BG <70, and no IV access Hydralazine HCl 25 mg 01/27/25 14:00 01/29/25 13:52 Hydralazine Hcl 25 Mg Tablet PO 02/26/25 13:59 25 mg TID JOEL Administration Hydralazine HCl 25 mg 01/27/25 10:24 Hydralazine Hcl 25 Mg Tablet PO 02/26/25 01:59 TID PRN SBP > 160 Piperacillin/Tazobactam/Dextrose 3.375 gm in 50 mls @ 12.5 mls/hr 01/28/25 06:00 01/29/25 13:54 Zosyn IV 02/04/25 05:59 12.5 mls/hr Q8HR JOEL Administration Protocol Insulin Human Lispro 0 unit 01/26/25 11:30 01/29/25 17:39 Insulin Lispro (Admelog) 1 Unit/0.01 Ml Unit SC 02/25/25 11:29 2 unit ACHS JOEL Administration Protocol Labetalol HCl 10 mg 01/27/25 02:00 01/28/25 00:04 Labetalol Inj 5 Mg/Ml Vial 20 Ml IVP 02/26/25 01:14 10 mg Q2H PRN Administration SBP> 160mmHg 1st line Lactulose 20 gm 01/25/25 18:45 01/29/25 09:48 Lactulose Syrup 20 Gm/30 Ml Udc PO 02/24/25 18:44 20 gm QAM JOEL Administration Protocol Lisinopril 20 mg 01/26/25 09:00 01/29/25 09:48 Lisinopril 20 Mg Tablet PO 02/25/25 08:59 20 mg QDAY JOEL Administration Lorazepam 0.5 mg 01/27/25 08:59 01/29/25 06:44 Lorazepam 2 Mg/Ml Vial IVP 02/01/25 08:58 0.5 mg Q6H PRN Administration ANXIETY Ondansetron HCl 4 mg 01/24/25 14:43 Ondansetron Inj 2 Mg/Ml Inj 2 Ml IVP 02/23/25 14:42 Q6H PRN NAUSEA OR VOMITING Protocol Prednisone 20 mg 01/26/25 09:00 01/29/25 09:49 Prednisone 20 Mg Tablet PO 02/02/25 07:39 20 mg QDAY JOEL Administration Quetiapine Fumarate 12.5 mg 01/28/25 09:33 Quetiapine Fumarate 25 Mg Tablet PO 02/27/25 09:32 QDAY PRN AGITATION Plan # Altered Mental Status Past medical history of prostate cancer status post prostatectomy with recurrence status post radiation and chemo (Lupron, Casodex), HTN Rapid called morning of 01/27 for AMS. BP 170/100 HR 100-110 Temp 100.2. Abx switched to Zosyn, given methylprednisolone 125 mg, haloperidol, hydralazine, IV labetalol and Mg. WBC 27.3-->26.5. Patient received total 5L of fluids during stay. s/p Lasix 40x1. TSH WNL, troponins WNL (initially elevated 2/2 demand ischemia in setting of septic shock), lactic acid 3.7 on 01/24 --> 2.1 --> 1.7 --> 1.9 on 01/27, glucose WNL, ammonia WNL, procalcitonin elevated 4.21 on 01/24. Chest x-ray significant for pneumonia at the right base, UA positive for UTI Inpatient medications include Ativan 0.5 mg IV as needed every 6 hours, quetiapine 12.5 mg daily as needed, prednisone 20 mg daily started on 01/26 Ddx includes fluid overload, HTN emergency, delirium, infection (PNA, UTI), medication-induced (ie. prednisone) vs electrolyte abnormality Plan: - Antibiotic management per primary team - Delirium precautions (frequently orient with adequate light during the day and off during night) - Pending B12, folate, thiamine # Meningioma Incidental finding on head CT without contrast of 4 x 4 cm calcified posterior left cerebral falx consistent with meningioma Plan: - Follow-up outpatient # HTN Initial BP very low due to septic shock. Resolved after fluids and antibiotics. Ranged 150-185 systolic and 85-120 diastolic, but now controlled on regimen below. Plan: - Lisinopril 20 mg QD - Hydralazine 25 mg TID # Septic shock, resolved # Left lung base pneumonia, improving # Hyperglycemia 2/2 steroids, improving Presented with progressive weakness, confusion and somnolence and decreased urine output. 01/24 CXR significant left lung pneumonia. WBC continues to elevate likely 2/2 high steroids. BCx NGTD, UCx NGTD. Received Zosyn x1 01/24, ceftriaxone and azithromycin (01/25-01/26). 01/27 CXR suspicious PNA at R lung base. Plan: - Zosyn (01/27- - continue prednisone 20 mg PO QD - SSI # Rash, improving Diffuse maculopapular rash. Ddx includes viral xanthem vs vasculitis. Ddx includes IgA vasculitis, [place] Fever rash, uticaria, DRESS syndrome, serum sickness. Coccidioides IgM negative. Plan: - Famotidine and benadryl q6 prn - steroids as above - CTM - hold all home medications for now - f/u GEN, ANCA, C3/C4, IgA # GABBY Creatinine 3.6 and eGFR 16 on admission. No hx of kidney disease. Likely 2/2 septic shock and volume depletion. Renal US showed b/l renal cortical thinning and multiple benign L renal cysts. Cr and GFR improved. CR 2.1 on 01/29 Plan: - Management per primary team # Normocytic anemia Hgb 13.4 around baseline from 10/2024 of 12.8, MCV 85. Plan: - Management per primary team - and f/u outpatient Plan discussed with Dr. Keyona Spears, PGY1 Attending Provider Attestation/Addendum I independently reviewed the patient's record and agree with resident's findings, assessment and plan of care. His mental status is close to baseline, his confusion is secondary to metabolic causes Incidental meningioma does not need any intervention, needs annual MRI to follow closely Continue with the current management
[2025-01-29] MEDS: BENZONATATE 100 MG CAPSULE 200 MG PO (21:23)
[2025-01-30] VITALS (8 sets, daily range): BP systolic 119–166; BP diastolic 69–96; PULSE 76–89; RESP 18–23; TEMP 36.1–36.7; O2SAT 94–98
[2025-01-30] MEDS: PIPER/TAZO 3.375 GM PREMIX 3.375 GM/50 ML BAG IV ×2 (05:40→13:29)
[2025-01-30 06:14] LABS: Basophils # (Auto) 0.1 Thou/mm3 (0.0-0.2); Basophils % (Auto) 0 % (0-2.5); Eosinophils # (Auto) 0.7 Thou/mm3 (0.0-0.5); Eosinophils % (Auto) 5 % (0-10); Hematocrit 34.1 % (41.0-53.0); Hemoglobin 11.9 g/dL (13.5-16.0); Immature Granulocytes Auto 1.02 Thou/mm3 (0.00-0.00); Lymphocytes # (Auto) 1.0 Thou/mm3 (1.0-4.8); Lymphocytes % (Auto) 7 % (10-50); Mean Corpuscular HGB Conc 34.9 g/dl (31.0-37.0); Mean Corpuscular Hemoglobin 29.5 pg (25.0-35.0); Mean Corpuscular Volume 85 fL (80-100); Monocytes # (Auto) 0.5 Thou/mm3 (0.0-0.8); Monocytes % (Auto) 3 % (0-12); Neutrophils # (Auto) 11.6 Thou/mm3 (1.8-7.7); Neutrophils % (Auto) 78 % (37-80); Nucleated Red Blood Cell # 0.00 Thou/mm3 (0.00-0.00); Nucleated Red Blood Cell % 0 /100 WBC (0); Platelet Count 166 Thou/mm3 (140-440); RDW Standard Deviation 43.9 fL (35.1-43.9); Red Blood Count 4.03 Miln/mm3 (4.50-5.90); White Blood Count 14.9 Thou/mm3 (3.8-10.6)
[2025-01-30 06:39] LABS: Alanine Aminotransferase 35 U/L (10-49); Albumin, Serum 2.9 gm/dL (3.4-4.8); Albumin/Globulin Ratio 1.2 (1.2-2.2); Alkaline Phosphatase 72 U/L (46-116); Anion Gap 9 (7-16); Aspartate Amino Transferase 15 U/L (0-34); BUN/Creatinine Ratio 15 Ratio (12-20); Bilirubin,Total 0.9 mg/dL (0.3-1.2); Blood Urea Nitrogen 12 mg/dL (9-23); Calcium 8.1 mg/dL (8.3-10.6); Calcium (Corrected) 9.0 mg/dL (8.5-10.1); Carbon Dioxide 26.0 mMol/L (20.0-31.0); Chloride 105 mMol/L (98-107); Creatinine (Component) 0.8 mg/dL (0.6-1.3); Estimated Creatinine Clearance 75.9 mL/min (>60); Globulin 2.5 gm/dL (2.3-3.5); Glucose 112 mg/dL (74-106); Osmolality,Calculated 280 (275-295); Potassium 3.5 mMol/L (3.4-5.1); Sodium 140 mMol/L (136-145); Total Protein 5.4 gm/dL (5.7-8.2); eGFR > 60 See Note
[2025-01-30 06:48] LABS: Folate > 24.00 ng/mL (>5.38); Vitamin B12 > 2000 pg/mL (211-911)
--- NOTE | 2025-01-30 08:33 | PC.SS ---
ASSEMBLER [employer]ATHER [employer] confirmed with patient, patient's spouse and son; that discharge plan is for the patient to return home with home health. SNF option has been declined. ASSEMBLER LEATHER GOODS updated bedside nurse.
--- NOTE | 2025-01-30 08:37 | ESDS_ITS ---
Planned Discharge Date 01/30/25 DS: Providers Provider Date of admission: 01/24/25 14:41 Primary care physician: Laquita Curiel MD Admitting Provider: Laquita Curiel MD Attending Provider on Admission: Laquita Curiel MD Consults: 01/25/25 07:47 Referral Physical Therapy Routine Comment: Physician Instructions: 01/28/25 09:31 Consult to Neurology / Tele-Neurology Routine Comment: Altered Mental Status Consulting Provider: Shine Rand Attending Provider on DC: Laquita Curiel MD Discharging Provider: Laquita Curiel MD DS: Diagnosis Problem List Completed Was Problem List Reviewed/Reconciled?: Yes Hospital Course Hospital Course Hospital course: Summary: Iftikhar Haines is a 84M pmhx significant for prostate cancer status post prostatectomy years ago with recurrence in in May 2024 undergoing radiation therapy, on Lupron and Casodex , hypertension who presents with several days of weakness and rash all over the body for 1-2 days ED Course: at bedside and majority of history collected from her. reports that patient began feeling weak and had difficulty walking short distances without feeling fatigued beginning Thursday with gradual worsening, as well as a spreading body rash that started yesterday. also reports that patient has had less urine output the past 2 days and has been slowly getting more confused, sometimes speaking nonsense . Patient has multiple falls yesterday and today. Denies any recent change in medication, travel or diet changes. Denies fever, chest pain, or shortness of breath. Hospital Course: 01/25/25: No acute overnight events. Patient was seen and examined at bedside. Family at bedside. Patient is alert and awake this morning, and orientation significantly improved compared to yesterday. Lactic acid decreased 2.1 to 1.7 and WBC still elevated at 25.9. reports giving him home lisinopril this morning, and was educated to not give home medications in hospital. 01/26/25: No acute overnight events. Patient was seen and examined at bedside. also at bedside. Patient is alert and well-appearing. Patient is feeling well today is to go home. Rashes more stable today, not spreading. No new complaints. With blood cell count still elevated at 26.2. Blood pressure this morning 151/81 and consistently high throughout the night. 01/27/25: Overnight, rapid called for confusion. BP 170/100 HR 100-110 Temp 100.2. Abx switched to Zosyn, given methylprednisolone 125 mg, haloperidol, hydralazine, IV labetalol and Mg. WBC still elevated 27.3 today. Soft restraints were in place for wanting to pull out lines last night. Patient seen and examined at bedside. Family at bedside. Patient is more confused and less alert, to answer most questions appropriately. 01/28/25: Overnight, received one Duoneb tx. and daughter, Reina, at bedside. Patient seen and examined at bedside. Patient is sleepy this morning and is still confused, but more alert compared to yesterday. No new complaints. 01/29/25: No acute overnight events. and daughter, Reina and son at bedside. Patient seen and examined at bedside. Patient is in restraints and has some frustration with being on restraints and wants to go home. Patient's orientation continues to wax and wane throughout the day. Patient currently was more alert and oriented when examined today. No new complaints. 01/30/25: No acute overnight events. Patient was seen and examined at bedside with family present. WBC continues to downtrend. Is more alert and oriented today. No new complaints. Denies fever, chest pain or SOB. Patient is feeling well and wants to go home. Discharge Recommendations: - Please take all medications as prescribed - Start Prednisone 20 mg every day for 5 days - Start Suprax 500 mg twice a day for 10 days - Start Hydralazine 25 mg three times a day - Start home health physical therapy - Resume all home medications - Please follow up with your PCP within one week of discharge - If your symptoms worsen, please seek immediate medical attention and return to your nearest emergency room. - If you do not have a PCP, you may follow up at the [facility] at [address] [place] [address] [address], [facility] [id number], Hospital Diagnoses: # Altered Mental Status, improved # HTN # Septic shock, resolved # Left lung base pneumonia, improving # Hyperglycemia 2/2 steroids, improving # Rash, improving # GABBY, resolved # Normocytic anemia # Elevated lactic acid, resolved # Elevated troponins, resolved Status at Discharge Functional status at discharge: independent ambulation Overall status at discharge: patient is back to baseline Time Spent with Patient Time attestation: Total time spent providing and/or coordinating discharge services: Time spent: Greater than 30 minutes Exam Vital Signs Temp Pulse Resp BP Pulse Ox O2 Del Method O2 Flow Rate 98.1 F 82 20 166/88 H 95 Room Air 2 01/30/25 04:00 01/30/25 05:40 01/30/25 04:00 01/30/25 05:40 01/30/25 04:00 01/30/25 04:00 01/28/25 20:00 Narrative Exam General: AOx3, no acute distress HEENT: NC/AT, mucous membranes moist, bilateral sclera anicteric Cardiovascular: regular rate and rhythm, S1/S2 present, no murmurs appreciated Pulmonary: no wheezes Abdominal: soft, non-tender, non-distended, no rebound/guarding, bowel sounds present Extremities: no peripheral edema Skin: warm and dry, much improved maculopapular rash all over the body Neuro CN II-XII grossly intact, no focal deficits Discharge Plan Plan Patient Disposition: Home w/HOME HEALTH Disposition Comment: with Physical Therapy Patient condition on transfer: Stable Prescriptions/Referrals Prescriptions/Med Rec: New prednisone 20 mg Tablet 20 mg PO QDAY 5 Days Qty: 5 0RF hydralazine 25 mg Tablet 25 mg PO TID 30 Days Qty: 90 0RF cefixime 400 mg capsule 400 mg PO BID 7 Days Qty: 14 0RF Continued gabapentin 300 mg Capsule 300 mg PO BID doxazosin 2 mg Tablet 2 mg PO QDAY atorvastatin 10 mg Tablet 10 mg PO QDAY lisinopril-hydrochlorothiazide 20-12.5 mg tablet 1 tab PO DAILY Patient Comments: TAKE 1 TABLET BY MOUTH ONCE DAILY ofloxacin 0.3 % Drops 10 drp OTIC (EAR) BID oxybutynin chloride 5 mg tablet 5 mg PO QDAY Patient Comments: TAKE 1 TABLET BY MOUTH AT BEDTIME bicalutamide 50 mg tablet 50 mg PO QDAY Patient Comments: TAKE 1 TABLET BY MOUTH EVERY DAY Referrals: Laquita Curiel MD [Primary Care Provider] - Patient/Caregiver Discharge Instructions Discharge Activity: activity as tolerated Education Materials: Preventing Pneumonia, Sepsis, ED Pneumonia (Adult) Print Language: Sami Activity Restrictions/Additional Instructions: Follow up with Dr. Curiel within 1 week. Stand Alone Forms: Jennifer Award Info., Patient Portal Info Letter Discharge Order Discharge Orders: Discharge (Routine); Ordered 01/30/25 Ordered By: Traci Pulido Quality Discharge Quality Measures VTE prophylaxis MD Attestestation MD Attestation Patient seen and examined with resident physician Dr. Pulido. Note reviewed, agree with findings and recommendations. Prescription sent through my office.
[2025-01-30] MEDS: FAMOTIDINE INJ 10 MG/ML VIAL 2 ML 20 MG IVP (08:45)
[2025-01-30] MEDS: LACTULOSE SYRUP 20 GM/30 ML UDC PO (08:45)
[2025-01-30] MEDS: INSULIN LISPRO (AdmeLOG) 1 UNIT/0.01 ML UNIT SC (13:00)
--- NOTE | 2025-01-30 13:32 | PD.RESPRO ---
Documentation for date of: 01/30/25 Exam Vital Signs Temp Pulse Resp BP Pulse Ox O2 Del Method O2 Flow Rate 97.2 F 89 18 141/90 H 95 Room Air 2 01/30/25 08:00 01/30/25 13:30 01/30/25 08:00 01/30/25 13:30 01/30/25 08:00 01/30/25 04:00 01/28/25 20:00 Narrative Exam General: No acute distress, well nourished Eye: PERRL, EOMI, normal conjunctiva, no scleral icterus HENT: Normocephalic, atraumatic, hearing intact to conversation at normal volume, moist oral mucosa Neck: Supple, non-tender, no JVD, no lymphadenopathy Lungs: Non-labored respirations, symmetric chest rise Heart: Peripheral pulses intact bilaterally Abdomen: Soft, non-tender, non-distended. LUE swollen but not painful, erythematous, or warmer than RUE Musculoskeletal: Normal range of motion and strength Skin: Skin is warm, dry, no rashes or lesions. Psychiatric: Cooperative, appropriate mood and affect Neurologic: Mental status: Orientation: Oriented to person, place, situation, and time. Patient occasionally falls asleep during exam but arouses to voice Communication: Patient is cooperative and can follow simple instructions Language: Speech fluent, normal rate and volume, comprehension intact Cranial nerves: CN II: Visual torres intact CN III: Pupils equal, round, and reactive to light CN III, IV, : No gaze deviation, no nystagmus Horizontal pursuit: intact Vertical pursuit: intact Ptosis: none CN V: Facial sensation to light touch intact bilaterally at the forehead, cheeks, and jaw line CN VII: Face symmetric, no facial droop appreciated CN VIII: Able to hear and respond to conversation at normal volume, intact to finger rub CN IX, X: Palate elevation symmetric, uvula midline CN XI: Head turn and shoulder shrug strong, symmetric bilaterally CN XII: Normal tongue protrusion without deviation, no fasciculations Motor: Normal bulk and tone No atrophy No abnormal movements or fasciculations Muscle strength: Shoulder abduction: R 5/5 L 5/5 Elbow flexion: R 5/5 L 5/5 Elbow extension: R 5/5 L 5/5 Hip flexion: R 5/5 L 5/5 Hip extension: R 5/5 L 5/5 Knee flexion: R 5/5 L 5/5 Knee extension: R 5/5 L 5/5 Sensory: RUE: Light touch intact LUE: Light touch intact RLE: Light touch intact LLE: Light touch intact Reflexes: Biceps (C5-6): R 2+ L 2+ Brachioradialis (C5-6): R 2+ L 2+ Triceps (C7-8): R 2+ L 2+ Patellae (L3-4): R 2+ L 2+ Achilles (S1-2):R 2+ L 2+ Cerebellum: RUE: No dysmetria (finger to nose) LUE: No dysmetria (finger to nose) Romberg: deferred Gait: deferred Objective Labs 01/30/25 05:41 01/30/25 05:41 Labs: Laboratory Results - last 24 hr 01/30/25 05:41 WBC 14.9 H RBC 4.03 L Hgb 11.9 L Hct 34.1 L MCV 85 MCH 29.5 MCHC 34.9 RDW Std Deviation 43.9 Plt Count 166 Neut % (Auto) 78 Lymph % (Auto) 7 L [place] % (Auto) 3 Eos % (Auto) 5 Baso % (Auto) 0 Neut # (Auto) 11.6 H Lymph # (Auto) 1.0 [place] # (Auto) 0.5 Eos # (Auto) 0.7 H Baso # (Auto) 0.1 Immature Gran # (Auto) 1.02 H Absolute Nucleated RBC 0.00 Immature Gran % 7 H Nucleated RBC % 0 Sodium 140 Potassium 3.5 Chloride 105 Carbon Dioxide 26.0 Anion Gap 9 BUN 12 Creatinine 0.8 Estim Creat Clear Calc 75.9 eGFR > 60 BUN/Creatinine Ratio 15 Glucose 112 H Calculated Osmolality 280 Calcium 8.1 L Corrected Calcium 9.0 Total Bilirubin 0.9 AST 15 ALT 35 Alkaline Phosphatase 72 Total Protein 5.4 L Albumin 2.9 L Globulin 2.5 Albumin/Globulin Ratio 1.2 Vitamin B12 > 2000 H Folate > 24.00 ABG Interpretation ABG results: 01/24/25 10:12 ABG pH 7.45 ABG pCO2 35 ABG pO2 193 H ABG HCO3 24 ABG O2 Saturation 100 H ABG Base Excess 1 Quality Measures Quality Measures VTE prophylaxis Assessment & Plan Assessment Current Active Medications: Generic Name Dose Route Start Last Admin Trade Name Freq PRN Reason Stop Dose Admin Acetaminophen 650 mg 01/24/25 14:43 01/29/25 04:07 Acetaminophen 325 Mg Tablet PO 02/23/25 14:42 650 mg Q6H PRN Administration pain 1-3 &/or temp>100.1 Albuterol/Ipratropium 3 ml 01/29/25 08:31 Albuterol/Ipratropium (Duoneb) Rt Kat 3 Ml Nebu INH 02/27/25 02:59 Q4HRRT PRN SHORTNESS OF BREATH OR WHEEZE Benzonatate 200 mg 01/29/25 20:52 01/29/25 21:23 Benzonatate 100 Mg Capsule PO 02/28/25 20:51 200 mg Q8HR PRN Administration COUGH Protocol Dextrose 25 ml 01/26/25 09:16 Dextrose 50%-Water Inj 50 Ml Syringe IV 02/25/25 09:15 Q15MIN PRN BG 50-70 responsive npo pt Dextrose 50 ml 01/26/25 09:16 Dextrose 50%-Water Inj 50 Ml Syringe IV 02/25/25 09:15 Q15MIN PRN BG <50 OR BG <70 & pt unresponsive Diphenhydramine HCl 12.5 mg 01/24/25 17:07 Diphenhydramine Inj 50 Mg/Ml Vial IVP 02/23/25 17:06 Q6HR PRN ITCHING Famotidine 20 mg 01/24/25 17:15 01/30/25 08:45 Famotidine Inj 10 Mg/Ml Vial 2 Ml IVP 02/23/25 17:14 20 mg QDAY JOEL Administration Glucagon 1 mg 01/26/25 09:16 Glucagon Inj 1 Mg Vial IM Q15MIN PRN BG <70, and no IV access Hydralazine HCl 25 mg 01/27/25 14:00 01/30/25 13:30 Hydralazine Hcl 25 Mg Tablet PO 02/26/25 13:59 25 mg TID JOEL Administration Hydralazine HCl 25 mg 01/27/25 10:24 Hydralazine Hcl 25 Mg Tablet PO 02/26/25 01:59 TID PRN SBP > 160 Piperacillin/Tazobactam/Dextrose 3.375 gm in 50 mls @ 12.5 mls/hr 01/28/25 06:00 01/30/25 13:29 Zosyn IV 02/04/25 05:59 12.5 mls/hr Q8HR JOEL Administration Protocol Insulin Human Lispro 0 unit 01/26/25 11:30 01/30/25 13:00 Insulin Lispro (Admelog) 1 Unit/0.01 Ml Unit SC 02/25/25 11:29 2 unit ACHS JOEL Administration Protocol Labetalol HCl 10 mg 01/27/25 02:00 01/28/25 00:04 Labetalol Inj 5 Mg/Ml Vial 20 Ml IVP 02/26/25 01:14 10 mg Q2H PRN Administration SBP> 160mmHg 1st line Lactulose 20 gm 01/25/25 18:45 01/30/25 08:45 Lactulose Syrup 20 Gm/30 Ml Udc PO 02/24/25 18:44 20 gm QAM JOEL Administration Protocol Lisinopril 20 mg 01/26/25 09:00 01/30/25 08:44 Lisinopril 20 Mg Tablet PO 02/25/25 08:59 20 mg QDAY JOEL Administration Lorazepam 0.5 mg 01/27/25 08:59 01/29/25 06:44 Lorazepam 2 Mg/Ml Vial IVP 02/01/25 08:58 0.5 mg Q6H PRN Administration ANXIETY Ondansetron HCl 4 mg 01/24/25 14:43 Ondansetron Inj 2 Mg/Ml Inj 2 Ml IVP 02/23/25 14:42 Q6H PRN NAUSEA OR VOMITING Protocol Prednisone 20 mg 01/26/25 09:00 01/30/25 08:44 Prednisone 20 Mg Tablet PO 02/02/25 07:39 20 mg QDAY JOEL Administration Quetiapine Fumarate 12.5 mg 01/28/25 09:33 Quetiapine Fumarate 25 Mg Tablet PO 02/27/25 09:32 QDAY PRN AGITATION Plan # Altered Mental Status Past medical history of prostate cancer status post prostatectomy with recurrence status post radiation and chemo (Lupron, Casodex), HTN Rapid called morning of 01/27 for AMS. BP 170/100 HR 100-110 Temp 100.2. Abx switched to Zosyn, given methylprednisolone 125 mg, haloperidol, hydralazine, IV labetalol and Mg. WBC 27.3-->26.5. Patient received total 5L of fluids during stay. s/p Lasix 40x1. Mentation returned to baseline TSH WNL, troponins WNL (initially elevated 2/2 demand ischemia in setting of septic shock), lactic acid 3.7 on 01/24 --> 2.1 --> 1.7 --> 1.9 on 01/27, glucose WNL, ammonia WNL, procalcitonin elevated 4.21 on 01/24. Chest x-ray significant for pneumonia at the right base, UA positive for UTI Inpatient medications include Ativan 0.5 mg IV as needed every 6 hours, quetiapine 12.5 mg daily as needed, prednisone 20 mg daily started on 01/26 B12 high >2000, folate >24 Ddx includes fluid overload, HTN emergency, delirium, infection (PNA, UTI), medication-induced (ie. prednisone) vs electrolyte abnormality Plan: - Antibiotic management per primary team - Delirium precautions (frequently orient with adequate light during the day and off during night) - Pending thiamine, blood cx # Meningioma Incidental finding on head CT without contrast of 4 x 4 cm calcified posterior left cerebral falx consistent with meningioma Incidental meningioma does not need any intervention, needs annual MRI to follow closely Plan: - Follow-up outpatient # HTN Initial BP very low due to septic shock. Resolved after fluids and antibiotics. Ranged 150-185 systolic and 85-120 diastolic, but now controlled on regimen below. Plan: - Lisinopril 20 mg QD - Hydralazine 25 mg TID # Septic shock, resolved # Left lung base pneumonia, improving # Hyperglycemia 2/2 steroids, improving Presented with progressive weakness, confusion and somnolence and decreased urine output. 01/24 CXR significant left lung pneumonia. WBC continues to elevate likely 2/2 high steroids. BCx NGTD, UCx NGTD. Received Zosyn x1 01/24, ceftriaxone and azithromycin (01/25-01/26). 01/27 CXR suspicious PNA at R lung base. Plan: - Management per primary - Zosyn (01/27-), prednisone 20 mg PO QD, SSI # Rash, improving Diffuse maculopapular rash. Ddx includes viral xanthem vs vasculitis. Ddx includes IgA vasculitis, Valley Fever rash, uticaria, DRESS syndrome, serum sickness. Coccidioides IgM negative. Plan: - Management per primary - steroids, famotidine, Benadryl q6h PRN - Pending GEN, ANCA, C3/C4, IgA # GABBY, resolved Creatinine 3.6 and eGFR 16 on admission. No hx of kidney disease. Likely 2/2 septic shock and volume depletion. Renal US showed b/l renal cortical thinning and multiple benign L renal cysts. Cr and GFR improved. CR 2.1 on 01/29 --> Cr 0.8 Plan: - Management per primary team # Normocytic anemia Hgb 13.4 around baseline from 10/2024 of 12.8, MCV 85. Plan: - Management per primary team - f/u outpatient Plan discussed with Dr. Keyona Spears, PGY1
--- NOTE | 2025-01-31 08:08 | PC.CC ---
Addendum entered by Laly Blue RN 01/31/25 17:26: [facility] accepted and booked. SOC pending Original Note: Pt is a [employer] member, HH sent to [facility]. Waiting for them to accept or decline.
[2025-02-01 06:29] LABS: ANA Screen, IFA POSITIVE (NEGATIVE); ANA Titer 1:160 titer
[2025-02-01 06:30] LABS: ANCA Screen NEGATIVE (NEGATIVE); Complement Component C3* 126 mg/dL; Complement Component C4c* 24 mg/dL; IgA, Serum* 219 mg/dL (70-320); Myeloperoxidase Ab <1.0 AI (<1.0); Proteinase-3 Ab <1.0 AI (<1.0)
--- NOTE | 2025-02-01 17:38 | PC.CC ---
received message from [facility] , pt declined services
[2025-02-06 07:54] LABS: Vitamin B1 (Thiamine)* 13 nmol/L (8-30)
== END 2025-01-30 16:00 | disposition home health service (06) | DRG 871 ==
LOC: SERX 10:09 → SERHOLD 14:58 → S2NX 16:37
PROVIDERS: Student in an Organized Health Care Education/Training Program; Admitting Provider Internal Medicine; Emergency Provider Family Medicine; PCP Internal Medicine; Visit Provider Internal Medicine
DX: A41.9 Sepsis, unspecified organism (principal); J18.9 Pneumonia, unspecified organism; R65.21 Severe sepsis with septic shock; N39.0 Urinary tract infection, site not specified; N17.9 Acute kidney failure, unspecified; I24.89 Other forms of acute ischemic heart disease; E87.20 Acidosis, unspecified; Z90.79 Acquired absence of other genital organ(s); I10 Essential (primary) hypertension; R21 Rash and other nonspecific skin eruption; R29.6 Repeated falls; D64.9 Anemia, unspecified; N28.1 Cyst of kidney, acquired; T38.0X5A Adverse effect of glucocorticoids and synthetic analogues, initial encounter; Z78.1 Physical restraint status; Z79.899 Other long term (current) drug therapy; Z92.21 Personal history of antineoplastic chemotherapy; Z85.46 Personal history of malignant neoplasm of prostate; Z92.3 Personal history of irradiation; Z96.653 Presence of artificial knee joint, bilateral
CPT/HCPCS: 36415; 36600; 70450; 71045; 76770; 80053; 80069; 81001; 82140; 82550; 82607; 82746; 82784; 82803; 83036; 83605; 83690; 83735; 83880; 84100; 84145; 84425; 84443; 84484; 85025; 85610; 85730; 86021; 86036; 86038; 86160; 86331; 86635; 87040; 87086; 87811; 93005; 94640; 96361; 96365; 96366; 96375; 97162; A9270; J0456; J0696; J1630; J1815; J1938; J2060; J2543; J2919; J3475; J3480; J3490; J7050; J7120; J7512; J7999; J1920

== ENCOUNTER 2025-03-22 10:20 | Outpatient (RCR) | payer OTHER, SELFPAY ==
--- NOTE | 2025-03-22 11:33 | CTCFLWUP_ITS ---
[facility] [address] [place], [place] [address] FOLLOW-UP NOTE Date: 03/22/2025 MR#: [id number] Name: DANIEL GARCIA : 1940 Dx: C61 Malignant neoplasm of prostate Identification. 85-year-old gentleman with history of prostate CA 2003. PSA risen to 22 on 04/25/2024 with radiograph including pelvis CT and PET 08/18/2024 showing possible pelvic node involvement, but appeared smaller and not hypermetabolic.. Received radiation therapy to the pelvic region completed [id number] centigray on 11/16/2024. Has been receiving monthly Lupron shots with Dr. Eagle and his PSA had dropped to less than 0.10 on 11/30/2024. According to family patient has been experiencing generalized body pain not alleviated with OTC meds. There was no definite suggestion of bone mets done on PET scan done earlier this year. Told patient about mild opioid tramadol 50 mg every 6 as needed as a trial. If it works well without significant side effects I will renew it. Cures website checked. I will see reassess patient's pain in 3 months. Cc: Dr Julia Curiel Electronically signed by: Isaias Yeung M.D. 03/22/2025 11:30 AM
== END 2025-04-18 23:59 | disposition home or self-care (01) ==
LOC: SCTC 10:20
PROVIDERS: PCP Internal Medicine; Referring Provider Internal Medicine; Visit Provider Radiology Therapeutic Radiology
DX: C61 Malignant neoplasm of prostate (principal); Z79.818 Long term (current) use of other agents affecting estrogen receptors and estrogen levels; Z92.3 Personal history of irradiation
CPT/HCPCS: 99212; G0463

== ENCOUNTER → 2025-05-16 | Outpatient (CLI) | payer OTHER, SELFPAY ==
[2025-05-16 09:07] LABS: Collection Type, Urine Clean Catch; WBC,Urine 0 /hpf (0-5)
[2025-05-16 09:26] LABS: Basophils # (Auto) 0.0 Thou/mm3 (0.0-0.2); Basophils % (Auto) 0 % (0-2.5); Eosinophils # (Auto) 0.1 Thou/mm3 (0.0-0.5); Eosinophils % (Auto) 1 % (0-10); Hematocrit 33.2 % (41.0-53.0); Hemoglobin 10.7 g/dL (13.5-16.0); Immature Granulocytes Auto 0.06 Thou/mm3 (0.00-0.00); Lymphocytes # (Auto) 1.5 Thou/mm3 (1.0-4.8); Lymphocytes % (Auto) 20 % (10-50); Mean Corpuscular HGB Conc 32.2 g/dl (31.0-37.0); Mean Corpuscular Hemoglobin 27.1 pg (25.0-35.0); Mean Corpuscular Volume 84 fL (80-100); Monocytes # (Auto) 0.5 Thou/mm3 (0.0-0.8); Monocytes % (Auto) 6 % (0-12); Neutrophils # (Auto) 5.5 Thou/mm3 (1.8-7.7); Neutrophils % (Auto) 72 % (37-80); Nucleated Red Blood Cell # 0.00 Thou/mm3 (0.00-0.00); Nucleated Red Blood Cell % 0 /100 WBC (0); Platelet Count 349 Thou/mm3 (140-440); RDW Standard Deviation 44.3 fL (35.1-43.9); Red Blood Count 3.95 Miln/mm3 (4.50-5.90); White Blood Count 7.6 Thou/mm3 (3.8-10.6)
[2025-05-16 09:27] LABS: Bilirubin,Urine Negative (Negative); Blood,Urine Negative (Negative); Clarity,Urine Clear (Clear/Hazy); Color,Urine Lt-Yellow (Lt Yel-Yel); Glucose, Urine Negative (Negative); Ketones,Urine Negative (Negative); Leukocyte Esterase,Urine Negative (Negative); Nitrite,Urine Negative (Negative); PH,Urine 8.0 (5.0-7.0); Protein,Urine Negative (Neg - Trace); RBC,Urine < 1 /hpf (0-3); Specific Gravity,Urine 1.011 (1.001-1.035); Squamous Epithelial Cell,Urine < 1 /hpf (0-5); Urobilinogen,Urine Negative mg/dL (0.0-1.0)
[2025-05-16 09:44] LABS: Creatinine MALB Rnd Ur 35 mg/dL (30-125); Microalbumin Creat Ratio 43 mg/gCrea (<30); Microalbumin, Random Urine 15 mg/L (0-300)
[2025-05-16 09:46] LABS: Glucose Estimated Average 151 mg/dL (80-131); Hemoglobin A1C 6.9 % Hgb (4.8-6.0)
[2025-05-16 09:49] LABS: Alanine Aminotransferase 17 U/L (10-49); Albumin, Serum 4.3 gm/dL (3.4-4.8); Albumin/Globulin Ratio 1.5 (1.2-2.2); Alkaline Phosphatase 123 U/L (46-116); Anion Gap 8 (7-16); Aspartate Amino Transferase 27 U/L (0-34); BUN/Creatinine Ratio 14 Ratio (12-20); Bilirubin,Total 0.5 mg/dL (0.3-1.2); Blood Urea Nitrogen 10 mg/dL (9-23); Calcium 9.4 mg/dL (8.3-10.6); Calcium (Corrected) 9.4 mg/dL (8.5-10.1); Carbon Dioxide 29.7 mMol/L (20.0-31.0); Cardiac Risk Estimate 3.2 RATIO (4.0-6.7); Chloride 101 mMol/L (98-107); Cholesterol 95 mg/dL (132-200); Creatinine (Component) 0.7 mg/dL (0.6-1.3); Globulin 2.8 gm/dL (2.3-3.5); Glucose 131 mg/dL (74-106); HDL Cholesterol 30 mg/dL (40-60); LDL Cholesterol,Calculated 47 mg/dL (0-130); Osmolality,Calculated 278 (275-295); Potassium 4.0 mMol/L (3.4-5.1); Sodium 139 mMol/L (136-145); Thyroid Stimulating Hormone 4.15 uIU/mL (0.55-4.78); Total Protein 7.1 gm/dL (5.7-8.2); Triglycerides 89 mg/dL (30-150); eGFR > 60 See Note
== END | disposition home or self-care (01) ==
LOC: COPL 08:23
PROVIDERS: PCP Internal Medicine; Referring Provider Internal Medicine; Visit Provider Internal Medicine
DX: E78.5 Hyperlipidemia, unspecified (principal); I10 Essential (primary) hypertension; G57.93 Unspecified mononeuropathy of bilateral lower limbs; R73.03 Prediabetes
CPT/HCPCS: 36415; 80053; 80061; 81001; 82043; 82570; 83036; 84443; 85025